=== PATIENT | female | born 1990 | race Caucasian/White ===

== ENCOUNTER 2018-01-15 14:08 | Emergency (ER) | payer SELFPAY, MEDICAID | END 2018-01-15 15:14 | disposition left against medical advice (07) | LOC: M ED 14:08 | DX: O20.9 Hemorrhage in early pregnancy, unspecified (principal); Z53.21 Procedure and treatment not carried out due to patient leaving prior to being seen by health care provider; Z3A.10 10 weeks gestation of pregnancy ==

== ENCOUNTER 2018-01-15 22:21 | Emergency (ER) | payer MEDICAID, SELFPAY ==
[2018-01-15] MEDS ORDERED: PERCOCET 5MG/325MG TAB PO ×2 (23:15)
[2018-01-15 23:44] LABS: BASO % 0.2 % (0.0-1.0); EOS # 0.1 10^3/uL (0.0-0.50); HEMATOCRIT 34.5 % (36.0-47.0); HEMOGLOBIN 11.9 g/dl (12.0-15.5); IMMATURE GRANULOCYTE % 0.3 % (0-3.0); LYMPH # 1.7 10^3/uL (1.5-6.5); LYMPH % 18.5 % (24.0-44.0); MEAN CORPUSCULAR HEMOGLOBIN 32.8 pg (27.0-33.0); MEAN CORPUSCULAR HGB CONC 34.5 g/dl (32.0-36.5); MONO # 0.7 10^3/uL (0.0-0.8); MONO % 7.5 % (0.0-5.0); NEUTROPHILS # 6.8 10^3/uL (1.8-7.7); NEUTROPHILS % 72.5 % (36.0-66.0); PLATELET COUNT, AUTOMATED 219 10^3/uL (150-450); RED BLOOD COUNT 3.63 10^6/uL (4.00-5.40); RED CELL DISTRIBUTION WIDTH 12.9 % (11.5-14.5); WHITE BLOOD COUNT 9.4 10^3/uL (4.0-10.0)
[2018-01-15] MEDS ORDERED: MORPHINE 2 MG/ML 1ML SYRINGE (J2270) As Ordered ×2 (23:44)
[2018-01-16] MEDS: NS 1,000 ML IV ×2 (00:04)
[2018-01-16] MEDS: MORPHINE 2 MG/ML 1ML SYRINGE (J2270) IV ×4 (00:04→01:49)
[2018-01-16 00:18] LABS: AMORPHOUS SEDIMENT RFX SMALL (NEGATIVE); KETONE, URINE AUTO RFX TRACE mg/dL (NEGATIVE); LEUKOCYTE ESTERASE UR AUTO RFX NEGATIVE (NEGATIVE); NITRITE, URINE AUTO RFX NEGATIVE (NEGATIVE); RBC, URINE AUTO RFX 2 /HPF (0-3); SPECIFIC GRAVITY UR AUTO RFX 1.019 (1.002-1.035); SQUAM EPITHELIAL CELL UR AURFX 15 /HPF (0-6); WBC, URINE AUTO RFX 4 /HPF (0-3)
[2018-01-16 00:24] LABS: HCG, SERUM QUANTITATIVE 66498 MIU/ML
[2018-01-16 01:36] LABS: CHLAMYDIA DNA AMPLIFICATION NEGATIVE (NEGATIVE); GC DNA AMPLIFICATION NEGATIVE (NEGATIVE)
[2018-01-16] MEDS: ACETAMINOPHEN TAB 650MG DOSE (2X325MG) PO ×2 (01:49)
[2018-01-16] MEDS: metroNIDAZOLE (FLAGYL) 500 MG TAB PO ×2 (02:45)
== END 2018-01-16 03:12 | disposition home or self-care (01) ==
LOC: M ED 22:21
DX: O23.591 Infection of other part of genital tract in pregnancy, first trimester (principal); O20.8 Other hemorrhage in early pregnancy; O99.611 Diseases of the digestive system complicating pregnancy, first trimester; O34.80 Maternal care for other abnormalities of pelvic organs, unspecified trimester; Z87.891 Personal history of nicotine dependence; Z3A.09 9 weeks gestation of pregnancy; Z91.89 Other specified personal risk factors, not elsewhere classified; Z88.5 Allergy status to narcotic agent; Z88.8 Allergy status to other drugs, medicaments and biological substances
CPT/HCPCS: J2270

== ENCOUNTER 2018-01-17 13:45 | Emergency (ER) | payer MEDICAID, SELFPAY ==
[2018-01-17] MEDS: METOCLOPRAMIDE INJ 10MG/2ML VIAL (J2765) IV (15:15)
[2018-01-17] MEDS: NS 1,000 ML IV (16:10)
[2018-01-17] MEDS: MAALOX 30 ML SUSP *UDC PO (16:10)
[2018-01-17] MEDS: LIDOCAINE VISCOUS 2% SOLN 15ML UDC PO (16:11)
[2018-01-17] MEDS: ONDANSETRON 4MG/2ML VIAL (J2405) IV (16:30)
[2018-01-17 16:45] LABS: ANION GAP 8 MEQ/L (8-16); BLOOD UREA NITROGEN 7 MG/DL (7-18); CALCIUM LEVEL 8.6 MG/DL (8.5-10.1); CARBON DIOXIDE LEVEL 21 MEQ/L (21-32); CHLORIDE LEVEL 107 MEQ/L (98-107); CREATININE FOR GFR 0.64 MG/DL (0.55-1.30); GLOMERULAR FILTRATION RATE > 60.0 (>60); GLUCOSE, FASTING 109 MG/DL (70-100); POTASSIUM SERUM 3.4 MEQ/L (3.5-5.1); SODIUM LEVEL 136 MEQ/L (136-145)
[2018-01-17] MEDS: MORPHINE 4 MG/ML 1ML VIAL/SYRINGE (J2270) IV (17:28)
== END 2018-01-17 18:03 | disposition home or self-care (01) ==
LOC: M ED 13:45
DX: O21.9 Vomiting of pregnancy, unspecified (principal); O23.591 Infection of other part of genital tract in pregnancy, first trimester; Z3A.09 9 weeks gestation of pregnancy; Z87.891 Personal history of nicotine dependence; Z88.8 Allergy status to other drugs, medicaments and biological substances; Z88.5 Allergy status to narcotic agent; Z79.2 Long term (current) use of antibiotics
CPT/HCPCS: J2270

== ENCOUNTER 2018-02-18 18:35 | Emergency (ER) | payer MEDICAID ==
[2018-02-18 19:44] LABS: KETONE, URINE AUTO RFX NEGATIVE (NEGATIVE); LEUKOCYTE ESTERASE UR AUTO RFX NEGATIVE (NEGATIVE); MUCUS, URINE RFX SMALL (NEGATIVE); NITRITE, URINE AUTO RFX NEGATIVE (NEGATIVE); RBC, URINE AUTO RFX 0 /HPF (0-3); SPECIFIC GRAVITY UR AUTO RFX 1.019 (1.002-1.035); SQUAM EPITHELIAL CELL UR AURFX 3 /HPF (0-6); WBC, URINE AUTO RFX 1 /HPF (0-3)
[2018-02-18 21:38] LABS: BASO % 0.2 % (0.0-1.0); EOS # 0.1 10^3/uL (0.0-0.50); EOS % 1.6 % (0.0-3.0); HEMATOCRIT 35.2 % (36.0-47.0); HEMOGLOBIN 11.9 g/dl (12.0-15.5); IMMATURE GRANULOCYTE % 0.5 % (0-3.0); LYMPH # 1.2 10^3/uL (1.5-6.5); LYMPH % 19.5 % (24.0-44.0); MEAN CORPUSCULAR HGB CONC 33.8 g/dl (32.0-36.5); MEAN CORPUSCULAR VOLUME 97.5 fl (80.0-96.0); MONO # 0.5 10^3/uL (0.0-0.8); MONO % 7.5 % (0.0-5.0); NEUTROPHILS # 4.5 10^3/uL (1.8-7.7); NEUTROPHILS % 70.7 % (36.0-66.0); PLATELET COUNT, AUTOMATED 196 10^3/uL (150-450); RED BLOOD COUNT 3.61 10^6/uL (4.00-5.40); RED CELL DISTRIBUTION WIDTH 13.4 % (11.5-14.5); WHITE BLOOD COUNT 6.4 10^3/uL (4.0-10.0)
[2018-02-18] MEDS: ONDANSETRON 4MG/2ML VIAL (J2405) IV (21:57)
[2018-02-18] MEDS: NS 1,000 ML IV (21:57)
[2018-02-18] MEDS: MORPHINE 2 MG/ML 1ML SYRINGE (J2270) IV (21:58)
== END 2018-02-18 23:01 | disposition home or self-care (01) ==
LOC: M ED 18:35
DX: O26.892 Other specified pregnancy related conditions, second trimester (principal); R11.0 Nausea; O26.852 Spotting complicating pregnancy, second trimester; N93.9 Abnormal uterine and vaginal bleeding, unspecified; Z3A.14 14 weeks gestation of pregnancy; N80.9 Endometriosis, unspecified; O99.332 Smoking (tobacco) complicating pregnancy, second trimester; F17.200 Nicotine dependence, unspecified, uncomplicated; Z98.890 Other specified postprocedural states; Z87.59 Personal history of other complications of pregnancy, childbirth and the puerperium; Z88.8 Allergy status to other drugs, medicaments and biological substances; Z88.5 Allergy status to narcotic agent
CPT/HCPCS: J2405

== ENCOUNTER → 2018-04-03 | Outpatient (CLI) | payer MEDICAID ==
[2018-04-03 17:49] LABS: BASO % 0.4 % (0.0-1.0); EOS # 0.1 10^3/uL (0.0-0.50); EOS % 1.6 % (0.0-3.0); HEMATOCRIT 35.4 % (36.0-47.0); HEMOGLOBIN 11.8 g/dl (12.0-15.5); IMMATURE GRANULOCYTE % 0.8 % (0-3.0); LYMPH # 1.2 10^3/uL (1.5-6.5); MEAN CORPUSCULAR HEMOGLOBIN 33.6 pg (27.0-33.0); MEAN CORPUSCULAR HGB CONC 33.3 g/dl (32.0-36.5); MEAN CORPUSCULAR VOLUME 100.9 fl (80.0-96.0); MONO # 0.5 10^3/uL (0.0-0.8); MONO % 7.2 % (0.0-5.0); NEUTROPHILS # 5.6 10^3/uL (1.8-7.7); PLATELET COUNT, AUTOMATED 236 10^3/uL (150-450); RED BLOOD COUNT 3.51 10^6/uL (4.00-5.40); RED CELL DISTRIBUTION WIDTH 13.9 % (11.5-14.5); WHITE BLOOD COUNT 7.5 10^3/uL (4.0-10.0)
[2018-04-03 21:56] LABS: CHLAMYDIA DNA AMPLIFICATION NEGATIVE (NEGATIVE); GC DNA AMPLIFICATION NEGATIVE (NEGATIVE)
[2018-04-05 10:24] LABS: RUBELLA IgG QUALITATIVE IMMUNE (IMMUNE)
[2018-04-05 10:41] LABS: HBsAg Prenatal NEGATIVE (NEGATIVE)
[2018-04-05 10:54] LABS: HIV 1&2 SCREEN CENTAUR NEGATIVE (NEGATIVE)
[2018-04-05 10:58] LABS: HEPATITIS C VIRUS ABY INDEX > 11.0 INDEX (<0.8)
[2018-04-10 00:06] LABS: HCV RNA NAA QUALITATIVE Positive (Negative)
== END ==
LOC: M SMT 15:04
DX: Z34.82 Encounter for supervision of other normal pregnancy, second trimester (principal); Z3A.20 20 weeks gestation of pregnancy; Z36.89 Encounter for other specified antenatal screening
CPT/HCPCS: 86762

== ENCOUNTER 2018-04-08 19:07 | Emergency (ER) | payer OTHER ==
[2018-04-08] MEDS: AUGMENTIN 875 MG TAB PO (21:54)
[2018-04-08] MEDS: NORCO 5/325MG TABLET (BULK FOR ED) PO (21:55)
[2018-04-08] MEDS: PERCOCET 5MG/325MG TAB PO (21:55)
== END 2018-04-08 22:09 | disposition home or self-care (01) ==
LOC: M ED 19:07
DX: K04.7 Periapical abscess without sinus (principal); K02.9 Dental caries, unspecified; F17.200 Nicotine dependence, unspecified, uncomplicated; Z88.8 Allergy status to other drugs, medicaments and biological substances; Z88.5 Allergy status to narcotic agent
CPT/HCPCS: 99282

== ENCOUNTER → 2018-04-11 | Outpatient (CLI) | payer OTHER, MEDICAID | LOC: M RAD 08:17 | DX: Z34.82 Encounter for supervision of other normal pregnancy, second trimester (principal); Z36.89 Encounter for other specified antenatal screening; Z3A.21 21 weeks gestation of pregnancy | CPT/HCPCS: 76816 ==

== ENCOUNTER 2018-04-21 08:49 | Emergency (ER) | payer OTHER ==
[2018-04-21] MEDS: PERCOCET 5MG/325MG TAB PO (10:03)
== END 2018-04-21 10:08 | disposition home or self-care (01) ==
LOC: M ED 08:49
DX: S02.5XXA Fracture of tooth (traumatic), initial encounter for closed fracture (principal); X58.XXXA Exposure to other specified factors, initial encounter; Y92.89 Other specified places as the place of occurrence of the external cause; K02.9 Dental caries, unspecified; F31.9 Bipolar disorder, unspecified; F41.9 Anxiety disorder, unspecified; F17.200 Nicotine dependence, unspecified, uncomplicated
CPT/HCPCS: 99282

== ENCOUNTER 2018-05-03 20:41 | Emergency (ER) | payer OTHER ==
[2018-05-03] MEDS: PERCOCET 5MG/325MG TAB PO ×2 (23:24→23:52)
[2018-05-03] MEDS: CLINDAMYCIN 150 MG CAP PO (23:53)
== END 2018-05-04 00:07 | disposition home or self-care (01) ==
LOC: M ED 05-04 00:07
DX: O99.89 Other specified diseases and conditions complicating pregnancy, childbirth and the puerperium (principal); K04.7 Periapical abscess without sinus; K02.9 Dental caries, unspecified; S02.5XXA Fracture of tooth (traumatic), initial encounter for closed fracture; X58.XXXA Exposure to other specified factors, initial encounter; Y92.89 Other specified places as the place of occurrence of the external cause; F17.200 Nicotine dependence, unspecified, uncomplicated; Z88.8 Allergy status to other drugs, medicaments and biological substances; Z88.5 Allergy status to narcotic agent; Z79.2 Long term (current) use of antibiotics; Z3A.00 Weeks of gestation of pregnancy not specified
CPT/HCPCS: 99283

== ENCOUNTER 2018-05-14 18:42 | Emergency (ER) | payer OTHER ==
[2018-05-14] MEDS: PERCOCET 5MG/325MG TAB PO (18:31)
== END 2018-05-14 19:02 | disposition home or self-care (01) ==
LOC: M ED 18:42
DX: K02.9 Dental caries, unspecified (principal); R51 Headache; F17.200 Nicotine dependence, unspecified, uncomplicated
CPT/HCPCS: 99283

== ENCOUNTER 2018-05-21 10:19 | Emergency (ER) | payer OTHER ==
[2018-05-21] MEDS ORDERED: NORCO, ANEXSIA 5/325MG TABLET (HYDROcodone/ACETAMINOPHEN) PO (11:00)
== END 2018-05-21 10:58 | disposition home or self-care (01) ==
LOC: M ED 10:19
DX: O99.89 Other specified diseases and conditions complicating pregnancy, childbirth and the puerperium (principal); S02.5XXA Fracture of tooth (traumatic), initial encounter for closed fracture; K08.89 Other specified disorders of teeth and supporting structures; X58.XXXA Exposure to other specified factors, initial encounter; Y92.9 Unspecified place or not applicable; Y93.9 Activity, unspecified; Y99.9 Unspecified external cause status; O99.332 Smoking (tobacco) complicating pregnancy, second trimester; Z3A.24 24 weeks gestation of pregnancy; Z91.89 Other specified personal risk factors, not elsewhere classified; Z88.5 Allergy status to narcotic agent; Z88.8 Allergy status to other drugs, medicaments and biological substances
CPT/HCPCS: 99283

== ENCOUNTER 2018-05-29 14:23 | Outpatient (CLI) | payer OTHER | END 2018-05-29 15:35 | LOC: M LDO 14:23 | DX: O26.893 Other specified pregnancy related conditions, third trimester (principal); Z3A.29 29 weeks gestation of pregnancy; N89.8 Other specified noninflammatory disorders of vagina; O98.413 Viral hepatitis complicating pregnancy, third trimester; O99.343 Other mental disorders complicating pregnancy, third trimester; F41.9 Anxiety disorder, unspecified; F31.9 Bipolar disorder, unspecified; O99.283 Endocrine, nutritional and metabolic diseases complicating pregnancy, third trimester; E28.2 Polycystic ovarian syndrome; N80.9 Endometriosis, unspecified; Z88.5 Allergy status to narcotic agent; Z88.8 Allergy status to other drugs, medicaments and biological substances; Z88.3 Allergy status to other anti-infective agents ==

== ENCOUNTER 2018-06-01 05:51 | Emergency (ER) | payer OTHER ==
[2018-06-01] MEDS ORDERED: PERCOCET 5MG/325MG TAB PO (06:30)
== END 2018-06-01 06:54 | disposition home or self-care (01) ==
LOC: M ED 05:51
DX: S02.5XXA Fracture of tooth (traumatic), initial encounter for closed fracture (principal); X58.XXXA Exposure to other specified factors, initial encounter; Y92.89 Other specified places as the place of occurrence of the external cause; F33.9 Major depressive disorder, recurrent, unspecified; F41.9 Anxiety disorder, unspecified; K27.9 Peptic ulcer, site unspecified, unspecified as acute or chronic, without hemorrhage or perforation; N80.9 Endometriosis, unspecified; Z88.5 Allergy status to narcotic agent; Z88.8 Allergy status to other drugs, medicaments and biological substances; F17.210 Nicotine dependence, cigarettes, uncomplicated
CPT/HCPCS: 99283

== ENCOUNTER 2018-06-05 20:42 | Emergency (ER) | payer OTHER ==
[2018-06-05] MEDS: NORCO 5/325MG TABLET (BULK FOR ED) PO (22:21)
== END 2018-06-05 22:26 | disposition home or self-care (01) ==
LOC: M ED 20:42
DX: K02.9 Dental caries, unspecified (principal); Z88.5 Allergy status to narcotic agent; Z88.8 Allergy status to other drugs, medicaments and biological substances; F17.210 Nicotine dependence, cigarettes, uncomplicated
CPT/HCPCS: 99283

== ENCOUNTER 2018-06-09 08:34 | Emergency (ER) | payer OTHER ==
[2018-06-09] MEDS: AUGMENTIN 875 MG TAB PO (09:35)
[2018-06-09] MEDS: PERCOCET 5MG/325MG TAB PO (09:36)
== END 2018-06-09 09:45 | disposition home or self-care (01) ==
LOC: M ED 08:34
DX: K02.9 Dental caries, unspecified (principal); K04.7 Periapical abscess without sinus; F31.9 Bipolar disorder, unspecified; Z88.8 Allergy status to other drugs, medicaments and biological substances
CPT/HCPCS: 99282

== ENCOUNTER 2018-06-12 12:09 | Emergency (ER) | payer OTHER | END 2018-06-12 13:49 | disposition home or self-care (01) | LOC: M ED 12:09 | DX: K08.89 Other specified disorders of teeth and supporting structures (principal) | CPT/HCPCS: 99283 ==

== ENCOUNTER 2018-06-14 12:31 | Emergency (ER) | payer OTHER ==
[2018-06-14] MEDS: LIDOCAINE VISCOUS 2% SOLN 15ML UDC MT (14:01)
== END 2018-06-14 14:02 | disposition home or self-care (01) ==
LOC: M ED 12:31
DX: O99.619 Diseases of the digestive system complicating pregnancy, unspecified trimester (principal); S02.5XXA Fracture of tooth (traumatic), initial encounter for closed fracture; X58.XXXA Exposure to other specified factors, initial encounter; Y92.89 Other specified places as the place of occurrence of the external cause; K27.9 Peptic ulcer, site unspecified, unspecified as acute or chronic, without hemorrhage or perforation; O99.340 Other mental disorders complicating pregnancy, unspecified trimester; F31.9 Bipolar disorder, unspecified; F41.9 Anxiety disorder, unspecified; O99.89 Other specified diseases and conditions complicating pregnancy, childbirth and the puerperium; N80.9 Endometriosis, unspecified; O99.330 Smoking (tobacco) complicating pregnancy, unspecified trimester; F17.210 Nicotine dependence, cigarettes, uncomplicated; Z3A.27 27 weeks gestation of pregnancy; Z88.5 Allergy status to narcotic agent; Z88.8 Allergy status to other drugs, medicaments and biological substances; Z79.2 Long term (current) use of antibiotics
CPT/HCPCS: 99282

== ENCOUNTER 2018-06-18 18:03 | Emergency (ER) | payer OTHER ==
[2018-06-18] MEDS: NORCO 5/325MG TABLET (BULK FOR ED) PO (20:39)
== END 2018-06-18 20:46 | disposition home or self-care (01) ==
LOC: M ED 18:03
DX: K08.89 Other specified disorders of teeth and supporting structures (principal); F17.200 Nicotine dependence, unspecified, uncomplicated
CPT/HCPCS: 99283

== ENCOUNTER 2018-06-27 22:23 | Emergency (ER) | payer OTHER ==
[2018-06-28] MEDS: AUGMENTIN 875 MG TAB PO (00:53)
== END 2018-06-28 00:56 | disposition home or self-care (01) ==
LOC: M ED 22:23
DX: K08.89 Other specified disorders of teeth and supporting structures (principal); F17.200 Nicotine dependence, unspecified, uncomplicated
CPT/HCPCS: 99283

== ENCOUNTER 2018-07-06 14:34 | Emergency (ER) | payer OTHER ==
[2018-07-06] MEDS: NORCO, ANEXSIA 5/325MG TABLET (HYDROcodone/ACETAMINOPHEN) PO (15:47)
== END 2018-07-06 15:55 | disposition home or self-care (01) ==
LOC: M ED 14:34
DX: O99.89 Other specified diseases and conditions complicating pregnancy, childbirth and the puerperium (principal); S02.5XXA Fracture of tooth (traumatic), initial encounter for closed fracture; X58.XXXA Exposure to other specified factors, initial encounter; Y92.9 Unspecified place or not applicable; Y93.9 Activity, unspecified; Y99.9 Unspecified external cause status; K08.89 Other specified disorders of teeth and supporting structures; K13.79 Other lesions of oral mucosa; Z3A.29 29 weeks gestation of pregnancy; Z88.6 Allergy status to analgesic agent; Z88.5 Allergy status to narcotic agent; Z88.8 Allergy status to other drugs, medicaments and biological substances; Z91.89 Other specified personal risk factors, not elsewhere classified
CPT/HCPCS: 99282

== ENCOUNTER → 2018-07-22 | Outpatient (REF) | payer OTHER | LOC: M LAB REF 17:23 | DX: O98.413 Viral hepatitis complicating pregnancy, third trimester (principal) ==

== ENCOUNTER 2018-08-05 17:04 | Inpatient (IN) | payer OTHER ==
[2018-08-05] MEDS: miSOPROStol 50 MCG 1/2 TAB (S0191) PO ×2 (18:19→22:43)
[2018-08-05 18:31] LABS: HEMATOCRIT 34.4 % (36.0-47.0); HEMOGLOBIN 11.6 g/dl (12.0-15.5); MEAN CORPUSCULAR HEMOGLOBIN 32.8 pg (27.0-33.0); MEAN CORPUSCULAR HGB CONC 33.7 g/dl (32.0-36.5); MEAN CORPUSCULAR VOLUME 97.2 fl (80.0-96.0); PLATELET COUNT, AUTOMATED 175 10^3/uL (150-450); RED BLOOD COUNT 3.54 10^6/uL (4.00-5.40); RED CELL DISTRIBUTION WIDTH 13.6 % (11.5-14.5); WHITE BLOOD COUNT 8.6 10^3/uL (4.0-10.0)
[2018-08-05 18:46] LABS: AMPHETAMINES URINE REFLEX NEGATIVE (NEGATIVE); BARBITURATES URINE REFLEX NEGATIVE (NEGATIVE); BENZODIAZEPINES URINE REFLEX NEGATIVE (NEGATIVE); CANNABINOIDS URINE REFLEX NEGATIVE (NEGATIVE); COCAINE METABOLITE URINE REFLE NEGATIVE (NEGATIVE); METHADONE URINE REFLEX NEGATIVE (NEGATIVE); OPIATES URINE REFLEX NEGATIVE (NEGATIVE); PHENCYCLIDINE URINE REFLEX NEGATIVE (NEGATIVE)
[2018-08-05] MEDS: NICOTINE 21MG/24HR 1 EA TRANSDERMAL TD (21:16)
[2018-08-06] MEDS: miSOPROStol 50 MCG 1/2 TAB (S0191) PO ×5 (02:15→18:15)
[2018-08-06] MEDS ORDERED: OXYTOCIN 30 UNITS IN 0.9% NaCl 500ML IV BAG (J2590) As Ordered (03:11)
[2018-08-06] MEDS: LR 1,000 ML IV ×3 (03:23→19:05)
[2018-08-06] MEDS: OXYTOCIN DRIP 30 UNITS in APPROPRIATE DILUENT 1 EA IV (03:24)
[2018-08-06] MEDS ORDERED: FENTANYL 2MCG/ML ROPIVACAINE 0.2% IN 0.9% NACL 100ML IVBAG As Ordered (03:58)
[2018-08-06] MEDS ORDERED: ONDANSETRON 4MG/2ML VIAL (J2405) IV (05:14)
[2018-08-06] MEDS ORDERED: ePHEDrine SULFATE 25 MG/5 ML(5MG/ML) SYRINGE IV (05:14)
[2018-08-06] MEDS ORDERED: REFRIGERATOR IV KEYS XX (05:14)
[2018-08-06] MEDS ORDERED: diphenhydrAMINE INJ 50MG/ML VIAL (J1200) IV (05:14)
[2018-08-06] MEDS ORDERED: LACTATED RINGER'S 1000 ML IV (05:14)
[2018-08-06] MEDS: FENTANYL/ROPIVACAINE/NACL BAG 100 ML EPIDURAL ×3 (05:14→23:42)
[2018-08-06] MEDS ORDERED: NALOXONE INJ 0.4 MG/1 ML VIAL (J2310) IV (05:14)
[2018-08-06] MEDS ORDERED: EPIDURAL/PCA KEYS XX (05:14)
[2018-08-06] MEDS ORDERED: EPIDURAL COMMENT XX (05:14)
[2018-08-06] MEDS: SERTRALINE 100 MG TAB PO (08:49)
[2018-08-06] MEDS: NICOTINE 21MG/24HR 1 EA TRANSDERMAL TD (21:10)
[2018-08-07 05:45] LABS: CORD GAS HCO3 A 20.1 MEQ/L; CORD GAS O2 SAT A 70.3 %; CORD GAS PCO2 A 41.4 mmHg; CORD GAS PH A 7.303 UNITS; CORD GAS PO2 A 31.3 mmHg; CORD GAS TCO2 A 21.3 MEQ/L
[2018-08-07 05:46] LABS: CORD GAS ABE V -4.6; CORD GAS HCO3 V 20.7 MEQ/L; CORD GAS O2 SAT V 77.7 %; CORD GAS PCO2 V 38.8 mmHg; CORD GAS PH V 7.344 UNITS; CORD GAS SBC V 20.3 MEQ/L; CORD GAS TCO2 V 21.8 MEQ/L
[2018-08-07] MEDS: OXYTOCIN DRIP 30 UNITS in APPROPRIATE DILUENT 1 EA IV (06:15)
[2018-08-07] MEDS ORDERED: DOCUSATE SODIUM 100 MG CAP PO (06:15)
[2018-08-07] MEDS ORDERED: DIBUCAINE 1% OINTMENT 30GM TOP (06:15)
[2018-08-07] MEDS: miSOPROStol 200 MCG TAB (S0191) PR (06:15)
[2018-08-07] MEDS ORDERED: MEASLES,MUMPS,RUBELLA VACCINE INJ (MMR-II) (90707) SC (06:15)
[2018-08-07] MEDS ORDERED: IBUPROFEN 800 MG TAB PO (06:15)
[2018-08-07] MEDS ORDERED: ANUSOL HC CREAM 30GM TOP (06:15)
[2018-08-07] MEDS ORDERED: RHOGAM 300 MCG (1500 IU) INJ (J2790) IM (06:15)
[2018-08-07] MEDS ORDERED: METHYLERGONOVINE MALEATE 0.2 MG TAB PO (06:15)
[2018-08-07] MEDS ORDERED: MOM 30ML SUSPENSION UDC PO (06:15)
[2018-08-07] MEDS ORDERED: OXYTOCIN 30 UNITS IN 0.9% NaCl 500ML IV BAG (J2590) As Ordered (06:17)
[2018-08-07] MEDS: AMPICILLIN SOD/SULBACTAM SOD 3 GM in D5W MINI-BAG PLUS 100 ML IV ×3 (06:51→18:29)
[2018-08-07] MEDS: ACETAMINOPHEN 500 MG TAB PO ×2 (07:32→17:57)
[2018-08-07] MEDS: PERCOCET 5MG/325MG TAB PO ×2 (09:25→19:52)
[2018-08-07] MEDS: NICOTINE 21MG/24HR 1 EA TRANSDERMAL TD (21:11)
[2018-08-08] MEDS: hydrOXYzine 50 MG TAB PO (00:29)
[2018-08-08] MEDS: PERCOCET 5MG/325MG TAB PO ×4 (00:30→15:10)
[2018-08-08] MEDS: AMPICILLIN SOD/SULBACTAM SOD 3 GM in D5W MINI-BAG PLUS 100 ML IV ×2 (00:31→06:01)
[2018-08-08] MEDS: SERTRALINE 100 MG TAB PO (09:10)
[2018-08-08] MEDS ORDERED: NICOTINE 21MG/24HR 1 EA TRANSDERMAL TD (21:00)
== END 2018-08-08 15:20 | disposition home or self-care (01) | DRG 541 ==
LOC: M LDI 17:04 → M OBS 08-07 08:49
PROVIDERS: Advanced Practice Midwife
PROC: 3E0P7GC Introduction of Other Therapeutic Substance into Female Reproductive, Via Natural or Artificial Opening (ICD-10-PCS; 2018-08-05)
PROC: 10E0XZZ Delivery of Products of Conception, External Approach (ICD-10-PCS; principal; 2018-08-07)
PROC: 10D17Z9 Manual Extraction of Products of Conception, Retained, Via Natural or Artificial Opening (ICD-10-PCS; 2018-08-07)
DX: O99.344 Other mental disorders complicating childbirth (principal); F32.9 Major depressive disorder, single episode, unspecified; F41.9 Anxiety disorder, unspecified; O99.334 Smoking (tobacco) complicating childbirth; F17.210 Nicotine dependence, cigarettes, uncomplicated; O73.0 Retained placenta without hemorrhage; Z37.0 Single live birth; Z3A.39 39 weeks gestation of pregnancy

== ENCOUNTER 2018-09-03 00:48 | Emergency (ER) | payer OTHER ==
[~2018-09-03] VITALS: Ht 162.6 cm; Wt 77.3 kg
[2018-09-03 00:48] VITALS: BP 125/66
[~2018-09-03 00:48] MED LIST: ACET-683 PO; ACET30TAB PO; AMOX500C PO; AUGM875T28 PO; BENA25CA2 PO; CLEO300C2 PO; COLA100C5 PO; FLAG500T PO; FLINCHW9 PO; IBUP80TA PO; MAGICMW SSP; MAPA500T2 PO; NICO21DI6 TOP; NORCOTAB PO; OXYC1TAB23 PO; PERC5TAB12 PO; PERCOCET PO; SERT50TA PO; STUACAP PO; TYLE167L PO; VITAPOW38 PO; ZOFR4TAB14 PO; [UNRECOGNIZED DRUG - CODE]
[2018-09-03] MEDS ORDERED: CETACAINE SPRAY 5GM TOP ONE (02:30)
[2018-09-03] MEDS ORDERED: BUPIVACAINE HCL 0.5% 30 ML VIAL SC ONE (02:30)
== END 2018-09-03 02:32 | disposition left against medical advice (07) ==
LOC: M ED 00:48
DX: K08.89 Other specified disorders of teeth and supporting structures (principal); G89.29 Other chronic pain; F31.9 Bipolar disorder, unspecified; F17.200 Nicotine dependence, unspecified, uncomplicated; Z79.899 Other long term (current) drug therapy; Z88.8 Allergy status to other drugs, medicaments and biological substances; Z88.5 Allergy status to narcotic agent; Z88.1 Allergy status to other antibiotic agents

== ENCOUNTER 2018-09-06 17:22 | Emergency (ER) | payer OTHER ==
[~2018-09-06] VITALS: Ht 162.6 cm; Wt 72.7 kg
[2018-09-06 17:22] VITALS: BP 143/92
[2018-09-06] MEDS ORDERED: ACETAMINOPHEN 325 MG TAB PO ONE (18:00)
--- NOTE | 2018-09-06 18:21 | REP ---
CT study of the cervical spine without contrast: History: Push down stairs. Technique: Helical scanning is acquired and overlapping 2 mm high resolution axial images were generated and reviewed at bone and soft tissue window settings. Coronal and sagittal multiplanar re-formations images are generated. CT findings: There is no evidence of cervical spine element fracture. No skull base fracture is seen. Cervical vertebral body heights are preserved. Alignment is normal. Facet joints are normally aligned bilaterally at each cervical level on multiplanar re-formations images. There is no evidence of intraspinal or paraspinal hematoma. No extra vertebral abnormality is seen. Incidental note is made of a right-sided cervical rib at the C7 vertebral body level. Impression: Incidental right cervical rib noted at C7. Otherwise negative CT study of the cervical spine without contrast. No fracture seen. Electronically Signed by Pool Shea MD 09/06/2018 06:13 P
--- NOTE | 2018-09-06 21:13 | REP ---
Left elbow series: Four views. History: Injury in a fall down stairs. Findings: Four views of the left elbow are presented. The lateral view is less than optimally positioned. No fracture or subluxation is seen. Impression: No fracture noted. Electronically Signed by Pool Shea MD 09/07/2018 08:22 A
== END 2018-09-06 18:56 | disposition home or self-care (01) ==
LOC: M ED 17:22
DX: M79.602 Pain in left arm (principal); R68.84 Jaw pain; M54.2 Cervicalgia; Z76.5 Malingerer [conscious simulation]; B19.20 Unspecified viral hepatitis C without hepatic coma; F31.9 Bipolar disorder, unspecified; F41.9 Anxiety disorder, unspecified; Z88.5 Allergy status to narcotic agent; Z88.8 Allergy status to other drugs, medicaments and biological substances

== ENCOUNTER 2018-09-15 11:01 | Emergency (ER) | payer OTHER ==
[~2018-09-15] VITALS: Ht 162.6 cm; Wt 72.7 kg
[2018-09-15 11:02] VITALS: BP 139/68
[2018-09-15] MEDS ORDERED: APAP500T10 PO (11:15)
[2018-09-15] MEDS ORDERED: AUGM875T28 PO (11:50)
[2018-09-15] MEDS ORDERED: PERC5TAB12 PO (11:50)
[2018-09-15] MEDS ORDERED: [UNRECOGNIZED DRUG - CODE] MT (11:52)
[2018-09-15] MEDS ORDERED: PERCOCET 5MG/325MG TAB PO ONE (12:00)
[2018-09-15] MEDS ORDERED: AUGMENTIN 875 MG TAB PO ONE (12:00)
[2018-09-25] MEDS ORDERED: AUGM875T28 PO (11:41)
[2018-09-25] MEDS ORDERED: CLON0.5T8 PO (11:41)
== END 2018-09-15 12:24 | disposition home or self-care (01) ==
LOC: M ED 11:01
DX: K04.7 Periapical abscess without sinus (principal); R56.9 Unspecified convulsions; E28.2 Polycystic ovarian syndrome; B19.20 Unspecified viral hepatitis C without hepatic coma; Z88.5 Allergy status to narcotic agent; Z88.8 Allergy status to other drugs, medicaments and biological substances; F17.210 Nicotine dependence, cigarettes, uncomplicated

== ENCOUNTER 2018-09-25 12:58 | Emergency (ER) | payer OTHER ==
[~2018-09-25] VITALS: Ht 162.6 cm; Wt 72.7 kg
[~2018-09-25 12:58] MED LIST changes: +APAP500T10 PO; +CLON0.5T8 PO; +[UNRECOGNIZED DRUG - CODE] MT
[2018-09-25 12:59] VITALS: BP 121/70
[2018-09-25] MEDS ORDERED: ZOFR4TAB16 PO (13:43)
[2018-09-25] MEDS ORDERED: CLEO300C2 PO (13:43)
[2018-09-25] MEDS ORDERED: LIDO1SOL7 PO (13:45)
[2018-10-03] MEDS ORDERED: NORC1TAB4 PO (14:05)
== END 2018-09-25 13:45 | disposition home or self-care (01) ==
LOC: M ED 12:58
DX: K08.89 Other specified disorders of teeth and supporting structures (principal); F17.200 Nicotine dependence, unspecified, uncomplicated; Z88.5 Allergy status to narcotic agent; Z88.8 Allergy status to other drugs, medicaments and biological substances; Z79.899 Other long term (current) drug therapy

== ENCOUNTER 2018-09-27 14:51 | Emergency (ER) | payer OTHER ==
[~2018-09-27] VITALS: Ht 162.6 cm; Wt 72.7 kg
[~2018-09-27 14:51] MED LIST changes: +LIDO1SOL7 PO; +ZOFR4TAB16 PO
[2018-09-27 14:52] VITALS: BP 121/78
[2018-09-27 15:24] LABS: BASO % 0.4 % (0.0-1.0); EOS # 0.2 10^3/uL (0.0-0.50); EOS % 2.9 % (0.0-3.0); HEMOGLOBIN 12.6 g/dl (12.0-15.5); LYMPH # 1.4 10^3/uL (1.5-6.5); LYMPH % 28.1 % (24.0-44.0); MEAN CORPUSCULAR HEMOGLOBIN 31.4 pg (27.0-33.0); MEAN CORPUSCULAR HGB CONC 33.2 g/dl (32.0-36.5); MEAN CORPUSCULAR VOLUME 94.8 fl (80.0-96.0); MONO # 0.4 10^3/uL (0.0-0.8); MONO % 8.6 % (0.0-5.0); NEUTROPHILS # 3.1 10^3/uL (1.8-7.7); NEUTROPHILS % 59.8 % (36.0-66.0); PLATELET COUNT, AUTOMATED 261 10^3/uL (150-450); RED BLOOD COUNT 4.01 10^6/uL (4.00-5.40); WHITE BLOOD COUNT 5.1 10^3/uL (4.0-10.0)
[2018-09-27 15:41] LABS: BLOOD UREA NITROGEN 15 MG/DL (7-18); CALCIUM LEVEL 8.4 MG/DL (8.5-10.1); CARBON DIOXIDE LEVEL 27 MEQ/L (21-32); CHLORIDE LEVEL 106 MEQ/L (98-107); CREATININE FOR GFR 0.93 MG/DL (0.55-1.30); GLOMERULAR FILTRATION RATE > 60.0 (>60); GLUCOSE, FASTING 90 MG/DL (70-100); POTASSIUM SERUM 3.7 MEQ/L (3.5-5.1); SODIUM LEVEL 137 MEQ/L (136-145)
[2018-09-27 15:44] LABS: HCG, SERUM QUALITATIVE NEGATIVE (NEGATIVE)
[2018-09-27] MEDS ORDERED: KETAMINE HCL 200 MG/20 ML VIAL IV ONE (16:15)
[2018-09-27 16:34] LABS: ALBUMIN 3.9 GM/DL (3.2-5.2); ALT/SGPT 88 U/L (12-78); BILIRUBIN,DIRECT 0.1 MG/DL (0.0-0.2); BILIRUBIN,TOTAL 0.3 MG/DL (0.2-1.0); TOTAL PROTEIN 7.5 GM/DL (6.4-8.2)
[2018-10-03] MEDS ORDERED: NORC1TAB4 PO (14:05)
== END 2018-09-27 16:35 | disposition left against medical advice (07) ==
LOC: M ED 14:51
DX: N93.9 Abnormal uterine and vaginal bleeding, unspecified (principal); B18.2 Chronic viral hepatitis C; K27.9 Peptic ulcer, site unspecified, unspecified as acute or chronic, without hemorrhage or perforation; F31.9 Bipolar disorder, unspecified; F90.9 Attention-deficit hyperactivity disorder, unspecified type; F41.9 Anxiety disorder, unspecified; Z87.42 Personal history of other diseases of the female genital tract; F17.210 Nicotine dependence, cigarettes, uncomplicated; Z88.5 Allergy status to narcotic agent; Z88.8 Allergy status to other drugs, medicaments and biological substances; Z79.899 Other long term (current) drug therapy; Z79.2 Long term (current) use of antibiotics

== ENCOUNTER 2018-10-13 17:36 | Emergency (ER) | payer OTHER ==
[~2018-10-13] VITALS: Ht 162.6 cm; Wt 72.7 kg
[~2018-10-13 17:36] MED LIST changes: +NORC1TAB4 PO
[2018-10-13 17:37] VITALS: BP 128/59
[2018-10-13] MEDS ORDERED: ACET-683 PO (17:57)
[2018-10-13] MEDS ORDERED: MAGICMW SSP (19:13)
[2018-10-13] MEDS ORDERED: CLEO300C2 PO (19:13)
[2018-10-13] MEDS ORDERED: CLINDAMYCIN 150 MG CAP PO ONE (19:15)
[2018-10-13] MEDS ORDERED: LIDOCAINE VISCOUS 2% SOLN 15ML UDC MT ONE (19:15)
[2018-10-13] MEDS ORDERED: ONDANSETRON 4 MG ORAL DISINTEGRATING TAB (Q0162 PER 1MG) PO ONE (19:15)
== END 2018-10-13 19:30 | disposition home or self-care (01) ==
LOC: M ED 17:36
DX: K04.7 Periapical abscess without sinus (principal); K08.89 Other specified disorders of teeth and supporting structures; Z86.19 Personal history of other infectious and parasitic diseases; R56.9 Unspecified convulsions; E28.2 Polycystic ovarian syndrome; J45.909 Unspecified asthma, uncomplicated; F41.9 Anxiety disorder, unspecified; F32.9 Major depressive disorder, single episode, unspecified; Z72.89 Other problems related to lifestyle; Z79.899 Other long term (current) drug therapy; Z88.6 Allergy status to analgesic agent; Z88.8 Allergy status to other drugs, medicaments and biological substances; Z88.5 Allergy status to narcotic agent; Z91.89 Other specified personal risk factors, not elsewhere classified

== ENCOUNTER 2018-11-03 18:27 | Emergency (ER) | payer OTHER ==
[~2018-11-03] VITALS: Ht 162.6 cm; Wt 72.7 kg
[2018-11-03 18:27] VITALS: BP 125/61
[2018-11-03] MEDS ORDERED: CLON0.5T8 PO ×2 (18:33→19:17)
[2018-11-03] MEDS ORDERED: GI COCKTAIL 50ML BTL(HYOSCYAMINE/MAALOX/LIDOCAINE VISCOUS)(1:3:1) PO ONE (19:15)
[2018-11-03] MEDS ORDERED: ONDANSETRON 4 MG ORAL DISINTEGRATING TAB (Q0162 PER 1MG) PO ONE (19:15)
[2018-11-03] MEDS ORDERED: clonazePAM 0.5 MG TAB PO ONE (19:15)
[2018-11-03] MEDS ORDERED: MAGICMW SSP (19:17)
[2018-11-03] MEDS ORDERED: ONDA4TAB6 PO (19:17)
[2018-11-09] MEDS ORDERED: PERCOCET PO (18:10)
== END 2018-11-03 19:30 | disposition home or self-care (01) ==
LOC: M ED 18:27
DX: Z76.0 Encounter for issue of repeat prescription (principal); R10.10 Upper abdominal pain, unspecified; R11.2 Nausea with vomiting, unspecified; G40.909 Epilepsy, unspecified, not intractable, without status epilepticus; F41.9 Anxiety disorder, unspecified; J45.909 Unspecified asthma, uncomplicated; B19.20 Unspecified viral hepatitis C without hepatic coma; F17.200 Nicotine dependence, unspecified, uncomplicated; Z88.8 Allergy status to other drugs, medicaments and biological substances; Z88.5 Allergy status to narcotic agent
CPT/HCPCS: 99282; Q0162

== ENCOUNTER 2018-11-07 14:14 | Emergency (ER) | payer OTHER ==
[~2018-11-07] VITALS: Ht 162.6 cm; Wt 78.6 kg
[~2018-11-07 14:14] MED LIST changes: +ONDA4TAB6 PO
[2018-11-07 14:15] VITALS: BP 108/69
[2018-11-07] MEDS ORDERED: TYLE500T78 PO (15:01)
[2018-11-09] MEDS ORDERED: PERCOCET PO (18:10)
== END 2018-11-07 15:13 | disposition home or self-care (01) ==
LOC: M ED 14:14
DX: K08.89 Other specified disorders of teeth and supporting structures (principal); F31.9 Bipolar disorder, unspecified; F17.210 Nicotine dependence, cigarettes, uncomplicated; Z91.041 Radiographic dye allergy status; Z88.8 Allergy status to other drugs, medicaments and biological substances; Z79.899 Other long term (current) drug therapy

== ENCOUNTER 2018-11-14 10:25 | Emergency (ER) | payer OTHER ==
[~2018-11-14] VITALS: Ht 162.6 cm; Wt 79.6 kg
[~2018-11-14 10:25] MED LIST changes: +TYLE500T78 PO
[2018-11-14 10:26] VITALS: BP 118/79
[2018-11-14] MEDS ORDERED: clonazePAM 0.5 MG TAB PO ONE (11:00)
[2018-11-14 11:22] LABS: BASO % 0.4 % (0.0-1.0); EOS # 0.3 10^3/uL (0.0-0.50); EOS % 5.7 % (0.0-3.0); HEMATOCRIT 38.5 % (36.0-47.0); HEMOGLOBIN 12.6 g/dl (12.0-15.5); LYMPH # 1.4 10^3/uL (1.5-6.5); LYMPH % 24.2 % (24.0-44.0); MEAN CORPUSCULAR HEMOGLOBIN 31.3 pg (27.0-33.0); MEAN CORPUSCULAR HGB CONC 32.7 g/dl (32.0-36.5); MEAN CORPUSCULAR VOLUME 95.8 fl (80.0-96.0); MONO # 0.5 10^3/uL (0.0-0.8); MONO % 8.8 % (0.0-5.0); NEUTROPHILS # 3.4 10^3/uL (1.8-7.7); NEUTROPHILS % 60.5 % (36.0-66.0); PLATELET COUNT, AUTOMATED 219 10^3/uL (150-450); RED BLOOD COUNT 4.02 10^6/uL (4.00-5.40); WHITE BLOOD COUNT 5.7 10^3/uL (4.0-10.0)
[2018-11-14 11:44] LABS: BLOOD UREA NITROGEN 15 MG/DL (7-18); CALCIUM LEVEL 8.4 MG/DL (8.5-10.1); CARBON DIOXIDE LEVEL 26 MEQ/L (21-32); CHLORIDE LEVEL 111 MEQ/L (98-107); CREATININE FOR GFR 0.76 MG/DL (0.55-1.30); GLOMERULAR FILTRATION RATE > 60.0 (>60); GLUCOSE, FASTING 88 MG/DL (70-100); SODIUM LEVEL 142 MEQ/L (136-145)
[2018-11-14] MEDS ORDERED: NORCO, ANEXSIA 5/325MG TABLET (HYDROcodone/ACETAMINOPHEN) PO ONE (12:00)
[2018-11-14] MEDS ORDERED: CLON0.5T8 PO (12:23)
--- NOTE | 2018-11-14 12:47 | REP ---
PELVIC SONOGRAPHY: HISTORY: Right ovarian cyst. Increased pain. FINDINGS: Transabdominal and transvaginal scanning are performed. Uterine dimensions are normal in 8.8 x 6.5 x 4.3 cm. Endometrial echo is 1.4 cm thick. No focal uterine lesion is seen. Nabothian cysts are noted. Right ovarian dimensions are 4.4 x 3.3 x 3.0 cm. There are hypoechoic cysts in the right ovary measuring 2.6 x 1.7 x 2.0 cm and 1.4 x 1.7 x 1.1 cm. The left ovary measures 4.5 x 2.7 x 2.6 cm. It contains a 1.8 cm follicle. There is a small quantity of fluid in the right adnexa adjacent to the ovary. Normal Doppler flow is seen to both ovaries. Resistive indices are measured at 0.46 on the right and 0.52 on the left. IMPRESSION: Two hypoechoic cysts in the right ovary consistent with hemorrhagic cyst. A small quantity of fluid is seen adjacent to these. Otherwise negative. Electronically Signed by Pool Shea MD 11/14/2018 12:53 P
== END 2018-11-14 12:29 | disposition home or self-care (01) ==
LOC: M ED 10:25
DX: N83.291 Other ovarian cyst, right side (principal); B18.2 Chronic viral hepatitis C; F31.9 Bipolar disorder, unspecified; F41.9 Anxiety disorder, unspecified; F17.210 Nicotine dependence, cigarettes, uncomplicated; Z79.899 Other long term (current) drug therapy

== ENCOUNTER 2018-11-22 10:37 | Emergency (ER) | payer OTHER ==
[~2018-11-22] VITALS: Ht 162.6 cm; Wt 72.7 kg
[~2018-11-22 10:37] MED LIST changes: +ACET-716 PO; -ACET30TAB PO; +HYDR-3715 PO; -LIDO1SOL7 PO; +LIDO1SOL8 PO; -NORC1TAB4 PO; +NORC1TAB7 PO; -NORCOTAB PO; +SERT-141 PO; -SERT50TA PO
[2018-11-22] MEDS ORDERED: CLON0.5T8 PO (12:03)
[2018-11-22 12:16] VITALS: BP 105/54
== END 2018-11-22 12:17 | disposition home or self-care (01) ==
LOC: M ED 10:37
DX: B34.9 Viral infection, unspecified (principal); Z76.0 Encounter for issue of repeat prescription; F41.9 Anxiety disorder, unspecified; F32.9 Major depressive disorder, single episode, unspecified; B18.2 Chronic viral hepatitis C; Z87.440 Personal history of urinary (tract) infections; R56.9 Unspecified convulsions; E28.2 Polycystic ovarian syndrome; Z72.0 Tobacco use; Z88.6 Allergy status to analgesic agent; Z88.8 Allergy status to other drugs, medicaments and biological substances

== ENCOUNTER 2018-11-30 10:23 | Emergency (ER) | payer MEDICAID, OTHER, SELFPAY ==
[~2018-11-30] VITALS: Ht 162.6 cm; Wt 80.9 kg
[2018-11-30] MEDS ORDERED: NS 1,000 ML IV ONE (11:00)
[2018-11-30] MEDS ORDERED: ONDANSETRON 4MG/2ML VIAL (J2405) IV ONE (11:00)
[2018-11-30] MEDS ORDERED: MORPHINE 4 MG/ML 1ML VIAL/SYRINGE (J2270) IV ONE ×2 (11:00→12:45)
[2018-11-30 11:31] LABS: BASO % 0.4 % (0.0-1.0); EOS # 0.2 10^3/uL (0.0-0.50); EOS % 5.1 % (0.0-3.0); HEMATOCRIT 39.1 % (36.0-47.0); HEMOGLOBIN 12.9 g/dl (12.0-15.5); LYMPH # 1.4 10^3/uL (1.5-6.5); LYMPH % 29.5 % (24.0-44.0); MEAN CORPUSCULAR HEMOGLOBIN 31.6 pg (27.0-33.0); MEAN CORPUSCULAR VOLUME 95.8 fl (80.0-96.0); MONO # 0.4 10^3/uL (0.0-0.8); MONO % 8.6 % (0.0-5.0); NEUTROPHILS # 2.7 10^3/uL (1.8-7.7); NEUTROPHILS % 56.2 % (36.0-66.0); PLATELET COUNT, AUTOMATED 272 10^3/uL (150-450); RED BLOOD COUNT 4.08 10^6/uL (4.00-5.40); WHITE BLOOD COUNT 4.8 10^3/uL (4.0-10.0)
[2018-11-30 12:04] LABS: BLOOD UREA NITROGEN 7 MG/DL (7-18); CHLORIDE LEVEL 110 MEQ/L (98-107); CREATININE FOR GFR 0.75 MG/DL (0.55-1.30); GLOMERULAR FILTRATION RATE > 60.0 (>60); GLUCOSE, FASTING 85 MG/DL (70-100); POTASSIUM SERUM 4.2 MEQ/L (3.5-5.1); SODIUM LEVEL 141 MEQ/L (136-145)
[2018-11-30 12:05] LABS: ALBUMIN 3.9 GM/DL (3.2-5.2); ALT/SGPT 67 U/L (12-78); BILIRUBIN,TOTAL 0.3 MG/DL (0.2-1.0); CALCIUM LEVEL 8.6 MG/DL (8.5-10.1); CARBON DIOXIDE LEVEL 25 MEQ/L (21-32); TOTAL PROTEIN 7.3 GM/DL (6.4-8.2)
--- NOTE | 2018-11-30 12:16 | REP ---
Clinical: Right lower quadrant pain. Technique: Real time donahue scale and color evaluation using curved array transducer. Findings: Ultrasound examination of the right lower quadrant demonstrates no obvious fluid collection, adenopathy or inflammatory changes by ultrasound examination. The appendix is not definitively identified. The right ovary is normal in appearance and vascularity measuring 3.1 x 2.6 x 2.2 cm; RI 0.47. Impression: Normal right ovary without torsion. Appendix not visualized. However, no sonographic evidence for appendicitis. Electronically Signed by Manolo Nash MD 11/30/2018 12:07 P
[2018-11-30 12:35] LABS: AMYLASE 47 U/L (25-115); LIPASE 258 U/L (73-393)
[2018-11-30] MEDS: READI-CAT 2 PO SCH ×2 (12:46→13:29)
[2018-11-30 13:47] VITALS: BP 112/64
[2018-11-30] MEDS ORDERED: ZOFR4TAB16 PO (14:43)
--- NOTE | 2018-11-30 14:47 | REP ---
Clinical: Right lower quadrant pain. Technique: Axial noncontrast images from the lung bases to the pubic symphysis with coronal and sagittal re-formations. Findings: Lung bases are clear. Visualized heart and pericardium normal. Liver, spleen, pancreas, gallbladder, bilateral adrenal glands and kidneys are normal for noncontrast evaluation. The enteric system is without obstruction or acute inflammatory process. Normal cecum, terminal ileum and appendix identified in the right lower quadrant. Pelvis demonstrates normal bladder and age-appropriate uterus/adnexa. No ascites. No free air. No adenopathy. Abdominal aorta without aneurysm. Musculoskeletal structures without focal osseous abnormality. Impression: Normal noncontrast CT of the abdomen and pelvis. Electronically Signed by Manolo Nash MD 11/30/2018 02:39 P
== END 2018-11-30 15:05 | disposition home or self-care (01) ==
LOC: M ED 10:23
DX: R10.31 Right lower quadrant pain (principal); R11.2 Nausea with vomiting, unspecified; Z76.5 Malingerer [conscious simulation]; R56.9 Unspecified convulsions; J45.909 Unspecified asthma, uncomplicated; E28.2 Polycystic ovarian syndrome; B18.2 Chronic viral hepatitis C; F31.9 Bipolar disorder, unspecified; F90.9 Attention-deficit hyperactivity disorder, unspecified type; F17.200 Nicotine dependence, unspecified, uncomplicated; Z88.8 Allergy status to other drugs, medicaments and biological substances; Z88.5 Allergy status to narcotic agent; Z79.899 Other long term (current) drug therapy
CPT/HCPCS: 36415; 74176; 76857; 80053; 81001; 82150; 83690; 85025; 96361; 96374; 96375; 96376; 99284; J2270; J2405

== ENCOUNTER 2018-12-19 08:38 | Emergency (ER) | payer OTHER ==
[~2018-12-19] VITALS: Ht 162.6 cm; Wt 78.3 kg
[2018-12-19 08:39] VITALS: BP 129/71
[2018-12-19] MEDS ORDERED: KETAMINE IV ONE (09:45)
[2018-12-19] MEDS ORDERED: NACL IV ONE (09:45)
[2018-12-19] MEDS ORDERED: DILUENT IV ONE (09:45)
[2018-12-19] MEDS ORDERED: ONDANSETRON 4MG/2ML VIAL (J2405) IV ONE (09:45)
[2018-12-19] MEDS ORDERED: NS 1,000 ML IV ONE (09:45)
--- NOTE | 2018-12-19 10:13 | REP ---
Right upper quadrant sonography: History: Right upper quadrant pain. Comparison study: Comparison CT study November 30, 2018. Findings: Scanning through the right upper quadrant of the abdomen demonstrates a normal sized, thin-walled gallbladder without evidence of stone or polyp. Common bile duct is normal measuring 0.5 cm in greatest diameter. No focal liver lesion is seen. Liver size is normal. No pancreatic abnormality is observed. No right renal abnormality is seen. There is no evidence of ascites. The right kidney measures 10.9 x 4.8 x 4.0 cm. Impression: Negative right upper quadrant sonography. Electronically Signed by Pool Shea MD 12/19/2018 10:05 A
[2018-12-19 11:03] LABS: BASO % 0.3 % (0.0-1.0); EOS # 0.2 10^3/uL (0.0-0.50); EOS % 3.1 % (0.0-3.0); HEMATOCRIT 40.5 % (36.0-47.0); HEMOGLOBIN 13.7 g/dl (12.0-15.5); LYMPH # 0.9 10^3/uL (1.5-6.5); MEAN CORPUSCULAR HEMOGLOBIN 32.2 pg (27.0-33.0); MEAN CORPUSCULAR HGB CONC 33.8 g/dl (32.0-36.5); MEAN CORPUSCULAR VOLUME 95.3 fl (80.0-96.0); MONO # 0.4 10^3/uL (0.0-0.8); MONO % 6.3 % (0.0-5.0); NEUTROPHILS # 5.4 10^3/uL (1.8-7.7); NEUTROPHILS % 77.2 % (36.0-66.0); PLATELET COUNT, AUTOMATED 203 10^3/uL (150-450); RED BLOOD COUNT 4.25 10^6/uL (4.00-5.40)
[2018-12-19] MEDS ORDERED: methylPREDNISolone INJ 125 MG/2 ML VIAL (J2930) IV ONE (11:30)
[2018-12-19] MEDS ORDERED: diphenhydrAMINE INJ 50MG/ML VIAL (J1200) IV ONE (11:30)
[2018-12-19 11:31] LABS: ALBUMIN 4.1 GM/DL (3.2-5.2); ALT/SGPT 95 U/L (12-78); BILIRUBIN,DIRECT 0.2 MG/DL (0.0-0.2); BILIRUBIN,TOTAL 0.7 MG/DL (0.2-1.0); BLOOD UREA NITROGEN 14 MG/DL (7-18); CALCIUM LEVEL 8.5 MG/DL (8.5-10.1); CARBON DIOXIDE LEVEL 24 MEQ/L (21-32); CHLORIDE LEVEL 109 MEQ/L (98-107); CREATININE FOR GFR 0.66 MG/DL (0.55-1.30); GLOMERULAR FILTRATION RATE > 60.0 (>60); GLUCOSE, FASTING 90 MG/DL (70-100); LIPASE 186 U/L (73-393); POTASSIUM SERUM 4.4 MEQ/L (3.5-5.1); SODIUM LEVEL 137 MEQ/L (136-145); TOTAL PROTEIN 7.4 GM/DL (6.4-8.2)
--- NOTE | 2018-12-19 12:14 | REP ---
CT ABDOMEN AND PELVIS WITHOUT IV OR ORAL CONTRAST: HISTORY: Right upper quadrant pain. COMPARISON CT STUDY: November 30, 2018 CT FINDINGS: Preliminary digital block cuber radiograph is unremarkable. Normal bowel gas pattern. The lung bases are clear. The liver and spleen are normal in size, homogeneous in texture. No gallbladder abnormality is seen. No adrenal lesion is observed. The pancreas is unremarkable. There is no evidence of intrarenal calculus. No ureteral calculus is seen. No hydronephrosis is noted. Urinary bladder is unremarkable. No uterine abnormality is seen. No significant ovarian cyst or mass. Normal appendix is noted in the right lower quadrant. Small and large bowel loops are unremarkable in the abdomen and pelvis. No evidence of free air or abnormal fluid collection. No abdominal wall defect is seen. No bony destructive lesion is seen. IMPRESSION: Negative noncontrast CT study of the abdomen and pelvis. Normal appendix seen. Electronically Signed by Pool Shea MD 12/19/2018 12:35 P
== END 2018-12-19 11:58 | disposition left against medical advice (07) ==
LOC: M ED 08:38
DX: R10.11 Right upper quadrant pain (principal); R11.2 Nausea with vomiting, unspecified; R19.7 Diarrhea, unspecified; M54.9 Dorsalgia, unspecified; S02.5XXA Fracture of tooth (traumatic), initial encounter for closed fracture; X58.XXXA Exposure to other specified factors, initial encounter; Y92.89 Other specified places as the place of occurrence of the external cause; Z76.5 Malingerer [conscious simulation]; F44.5 Conversion disorder with seizures or convulsions; K27.9 Peptic ulcer, site unspecified, unspecified as acute or chronic, without hemorrhage or perforation; F31.9 Bipolar disorder, unspecified; F90.9 Attention-deficit hyperactivity disorder, unspecified type; F41.9 Anxiety disorder, unspecified; Z86.19 Personal history of other infectious and parasitic diseases; Z87.42 Personal history of other diseases of the female genital tract; F17.210 Nicotine dependence, cigarettes, uncomplicated; Z88.5 Allergy status to narcotic agent; Z88.8 Allergy status to other drugs, medicaments and biological substances; Z79.899 Other long term (current) drug therapy
CPT/HCPCS: 74176; 76705; 80048; 80076; 81001; 81025; 83690; 85025; 96374; 99284; J2405

== ENCOUNTER 2019-01-21 18:35 | Emergency (ER) | payer OTHER ==
[~2019-01-21] VITALS: Ht 162.6 cm; Wt 72.7 kg
[2019-01-21 18:36] VITALS: BP 101/54
== END 2019-01-21 20:16 | disposition left against medical advice (07) ==
LOC: M ED 18:35
DX: Z53.29 Procedure and treatment not carried out because of patient's decision for other reasons (principal)

== ENCOUNTER 2019-02-15 17:53 | Emergency (ER) | payer OTHER ==
[~2019-02-15] VITALS: Ht 162.6 cm; Wt 75.3 kg
[2019-02-15] MEDS ORDERED: SERO50TA PO (18:29)
[2019-02-15] MEDS ORDERED: KLON1TAB PO (18:29)
[2019-02-15] MEDS ORDERED: ACETAMINOPHEN 500 MG TAB PO ONE (20:15)
[2019-02-15] MEDS ORDERED: LIDOCAINE 5% (LIDODERM) PATCH TD ONE (20:15)
[2019-02-15 20:19] VITALS: BP 102/63
[2019-02-15] MEDS ORDERED: ANEC4CRE3 TOP (20:20)
[2019-02-15] MEDS ORDERED: ACET-683 PO (20:21)
[2019-02-15] MEDS ORDERED: **NOTE PATIENT COMMENT** MISC XX SCH (21:00)
--- NOTE | 2019-02-16 08:42 | REP ---
Left wrist four views: Mineralization and joint spaces are normal. There is no fracture or dislocation. There are no calcifications or foreign bodies. Impression: Negative left wrist. Electronically Signed by Dylan Hernandez MD 02/16/2019 08:33 A
== END 2019-02-15 20:30 | disposition home or self-care (01) ==
LOC: M ED 17:53
DX: S63.92XA Sprain of unspecified part of left wrist and hand, initial encounter (principal); S60.212A Contusion of left wrist, initial encounter; W22.8XXA Striking against or struck by other objects, initial encounter; Y92.018 Other place in single-family (private) house as the place of occurrence of the external cause; Z79.899 Other long term (current) drug therapy; Z88.5 Allergy status to narcotic agent; Z88.8 Allergy status to other drugs, medicaments and biological substances

== ENCOUNTER 2019-03-23 14:40 | Emergency (ER) | payer OTHER ==
[~2019-03-23] VITALS: Ht 162.6 cm; Wt 72.7 kg
[~2019-03-23 14:40] MED LIST changes: +ANEC4CRE3 TOP; +KLON1TAB PO; +SERO50TA PO
[2019-03-23] MEDS ORDERED: clonazePAM 1 MG TAB PO ONE (15:30)
[2019-03-23] MEDS ORDERED: QUEtiapine FUMARATE 50 MG TAB PO ONE (15:30)
[2019-03-23] MEDS ORDERED: KLON0.5T PO (16:13)
[2019-03-23] MEDS ORDERED: SERO50TA PO (16:13)
[2019-03-23 16:20] VITALS: BP 56/78
== END 2019-03-23 16:21 | disposition home or self-care (01) ==
LOC: M ED 14:40
DX: Z76.0 Encounter for issue of repeat prescription (principal); F31.9 Bipolar disorder, unspecified; Z72.0 Tobacco use; Z79.899 Other long term (current) drug therapy; Z88.6 Allergy status to analgesic agent; Z91.89 Other specified personal risk factors, not elsewhere classified; Z88.5 Allergy status to narcotic agent

== ENCOUNTER 2019-03-27 16:26 | Inpatient (IN) | payer MEDICAID, OTHER ==
[~2019-03-27] VITALS: Ht 162.6 cm; Wt 73.9 kg
[~2019-03-27 16:26] MED LIST changes: +KLON0.5T PO
[2019-03-27 18:49] LABS: AMPHETAMINES LEVEL URINE NEGATIVE (NEGATIVE); BARBITURATES URINE NEGATIVE (NEGATIVE); BENZODIAZEPINES URINE NEGATIVE (NEGATIVE); CANNABINOIDS URINE POSITIVE (NEGATIVE); COCAINE METABOLITE URINE NEGATIVE (NEGATIVE); METHADONE URINE NEGATIVE (NEGATIVE); OPIATES URINE NEGATIVE (NEGATIVE); PHENCYCLIDINE URINE NEGATIVE (NEGATIVE)
[2019-03-27 18:52] LABS: ACETAMINOPHEN LEVEL < 2.0 UG/ML (10.0-30.0); ALBUMIN 3.3 GM/DL (3.2-5.2); ALT/SGPT 108 U/L (12-78); BILIRUBIN,DIRECT 0.1 MG/DL (0.0-0.2); BILIRUBIN,TOTAL 0.4 MG/DL (0.2-1.0); BLOOD UREA NITROGEN 12 MG/DL (7-18); CALCIUM LEVEL 9.1 MG/DL (8.5-10.1); CARBON DIOXIDE LEVEL 25 MEQ/L (21-32); CHLORIDE LEVEL 111 MEQ/L (98-107); CREATININE FOR GFR 0.48 MG/DL (0.55-1.30); ETHYL ALCOHOL (ETHANOL) < 0.003 % (0.000-0.010); GLOMERULAR FILTRATION RATE > 60.0 (>60); GLUCOSE, FASTING 114 MG/DL (70-100); POTASSIUM SERUM 3.9 MEQ/L (3.5-5.1); SALICYLATE LEVEL 2.1 MG/DL (5.0-30.0); SODIUM LEVEL 142 MEQ/L (136-145); THYROID STIMULATING HORMONE < 0.005 uIU/ML (0.358-3.740); TOTAL PROTEIN 6.8 GM/DL (6.4-8.2)
[2019-03-27 19:49] LABS: FREE T4 2.65 NG/DL (0.76-1.46)
[2019-03-27 20:03] LABS: HEMATOCRIT 36.7 % (36.0-47.0); HEMOGLOBIN 12.7 g/dl (12.0-15.5); MEAN CORPUSCULAR HEMOGLOBIN 30.2 pg (27.0-33.0); MEAN CORPUSCULAR HGB CONC 34.6 g/dl (32.0-36.5); MEAN CORPUSCULAR VOLUME 87.4 fl (80.0-96.0); PLATELET COUNT, AUTOMATED 242 10^3/uL (150-450)
[2019-03-27] MEDS ORDERED: clonazePAM 1 MG TAB PO ONE (20:30)
[2019-03-27 20:38] LABS: HCG, SERUM QUALITATIVE NEGATIVE (NEGATIVE)
[2019-03-27] MEDS ORDERED: MOM 30ML SUSPENSION UDC PO PRN (22:30)
[2019-03-27] MEDS ORDERED: ACETAMINOPHEN TAB 650MG DOSE (2X325MG) PO PRN (22:30)
[2019-03-27] MEDS ORDERED: MAALOX 30 ML SUSP *UDC PO PRN (22:30)
[2019-03-27] MEDS ORDERED: OLANZapine ORAL DISINTEGRATING TAB 5MG PO PRN (22:30)
[2019-03-28] MEDS: traZODone 50 MG TAB PO PRN ×2 (00:14→21:37)
[2019-03-28 00:41] VITALS: BP 106/61
[2019-03-28] MEDS ORDERED: clonazePAM 1 MG TAB PO ONE (07:00)
[2019-03-28] MEDS: NICOTINE 21MG/24HR 1 EA TRANSDERMAL TD SCH (08:18)
[2019-03-28] MEDS ORDERED: PILL CUTTER 1 EACH XX PRN (16:00)
--- NOTE | 2019-03-28 16:59 | HPEPDOC ---
[facility] Medical History & Physical Date of Admission Mar 27, 2019 Date of Service: Mar 28, 2019 History and Physical CHIEF COMPLAINT: medical evaluation for [facility] HISTORY OF PRESENT ILLNESS: Marilu is a 28 yo female who states she was admitted for anxiety and worsening bipolar isaiah. Patient states she has had weight gain, insomnia and worsening anxiety but is unable to quantify duration. Patient is focused on getting klonopin. PAST MEDICAL HISTORY: chronic hepatitis C - not treated, unknown duration Opioid dependence by history - last delivery 08/11/2018 Anxiety bipolar depression seasonal allergies PCOS endometriosis prior HPV/Chlalmydia hypothyroid as a child/teen Past surgery: abortions x 3, eye surgery, LEEP (for HPV and abnormal PAP) Family history: parents alive (mother 48 and father 51) with COPD Social history : smoke 1/2 ppd to 2 ppd depending on anxiety; no EtOH use; tried THC once and didn't like the side effects (states caused paranoia and worsening anxiety) ALLERGIES: Please see below. REVIEW OF SYSTEMS: CONSTITUTIONAL: weight gain, insomnia HEENT: neck swelling, difficulty swallowing CARDIOVASCULAR: palpitations RESPIRATORY: denies SOB or cough GASTROINTESTINAL: decreased appetite, no N, noV, no D, no C GENITOURINARY: no dysuria SKIN: no rash MUSCULOSKELETAL: fatigue, myalgias, tired NEUROLOGICAL: no parathesia PSYCHIATRIC: anxiety HOME MEDICATIONS: Please see below. PHYSICAL EXAMINATION: VITAL SIGNS: as below GENERAL APPEARANCE: well groomed, pleasant with pressured speech, fast gait and speech HEENT: no exopthalmos, ELSA/EOMI; neck supple with thyromegally and left thyroid nodule CARDIOVASCULAR: HRRR no murmur LUNGS:CTA no W/R/R ABDOMEN: no HSM, soft NT ND NABS MUSCULOSKELETAL: moves all four extremities, normal gait, no scoliosis, no CVA t enderness; right mid back tenderness/muscle spasm EXTREMITIES: no C/C/E NEUROLOGICAL: CN 3-12 intact , no gross motor or sensory deficits. swallow intact PSYCHIATRIC: affect: anxious LABORATORY DATA: See below. ASSESSMENT and PLAN: 1. Anxiety/bipolar disorder - management and diagnosis per psychiatry 2. Chronic hepatitis C - discussed with patient that LFT are mildly elevated and discussed with her obtaining a comp field case manager thru her insurance as outpatient to assist in getting treatment options covered by insurance. she will need a PCP upon discharge to refer her to GI for evaluation and treatment. Discussed with patient the risk of hepatic cancer associated with Hep C 3. Hyperthyroidism -probable autoimmune - check Thyroglobuliln, THryoid peroxidase. Total T3 (prior to starting tapazole) -Consider further outpatient evaluation for pituatry or hypothalmic disease if not already done -Other probable etiologies include post hyperthryoid, Raj thryoiditis vs subacute thryoiditis -Will start propranolol 10mg BID and increase as needed based on HR and BP tolerance of medication -Will start tapazole low dose in AM. Repeat Total T 3, and Free T4 in 1 week to monitor medication effectiveness -Will need repeat TSH in 4-6 weeks. Handout given to and reviewed with patient regarding hyperthyroidism, etiology, symptoms and treatment. Discussed with patient the importance of follow up and medication compliance. Reviewed medication side effect profile with patient. Will continue to follow peripherally. Thank you for allowing the hospitalists to care for the medical needs of this patient. Vital Signs Vital Signs Date Time Temp Pulse Resp B/P (MAP) Pulse Ox O2 Delivery O2 Flow Rate FiO2 03/28/19 00:41 97.7 74 18 106/61 (76) 100 03/27/19 23:15 Room Air Laboratory Data Labs 24H Laboratory Tests 2 03/27/19 16:46: Nucleated Red Blood Cells % (auto) 0.0, Anion Gap 6L, Glomerular Filtration Rate > 60.0, Calcium Level 9.1, Aspartate Amino Transf (AST/SGOT) 62H, Alanine Aminotransferase (ALT/SGPT) 108H, Alkaline Phosphatase 67, Total Bilirubin 0.4, Direct Bilirubin 0.1, Total Protein 6.8, Albumin 3.3, Albumin/Globulin Ratio 0.94L, Thyroid Stimulating Hormone (TSH) < 0.005L, Free Thyroxine 2.65H, Human Chorionic Gonadotropin, Qual NEGATIVE, Salicylates Level 2.1L, Urine Amphetamines Screen NEGATIVE, Urine Benzodiazepines Screen NEGATIVE, Urine Opiates Screen NEGATIVE, Urine Methadone Screen NEGATIVE, Acetaminophen Level < 2.0L, Urine Barbiturates Screen NEGATIVE, Urine Phencyclidine Screen NEGATIVE, Urine Cocaine Metabolite Screen NEGATIVE, Urine Cannabinoids Screen POSITIVEH, Ethyl Alcohol Level < 0.003 CBC/BMP Laboratory Tests 03/27/19 16:46 Red Blood Count 4.20, Mean Corpuscular Volume 87.4, Mean Corpuscular Hemoglobin 30.2, Mean Corpuscular Hemoglobin Concent 34.6, Red Cell Distribution Width 12.4 Home Medications Scheduled Quetiapine Fumarate (Seroquel) 50 Mg Tablet, 1 TAB PO QPM Scheduled PRN Clonazepam (Klonopin) 0.5 Mg Tablet, 1 TAB PO BIDP PRN for anxiety Allergies Coded Allergies: ibuprofen (Verified Allergy, Mild, HIVES, 11/22/18) iodine (Verified Allergy, Mild, HIVES, 11/22/18) ketorolac (Verified Allergy, Mild, HIVES, 11/22/18) tramadol (Verified Allergy, Mild, HIVES, 11/22/18) A-FIB/CHADSVASC A-FIB History Current/History of A-Fib/PAF?: No JOSE CRISOSTOMO DO Mar 28, 2019 16:58
[2019-03-28 17:26] LABS: THYROID PEROXIDASE ANTIBODY 147.8 U/ML (<60.0)
[2019-03-28 17:27] LABS: THYROGLOBULIN ANTIBODY 35.9 U/ML (<60.0)
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
[2019-03-28 18:00] VITALS: BP 130/61
[2019-03-28] MEDS ORDERED: PROPRANOLOL 10 MG TAB PO PRN (18:00)
[2019-03-28] MEDS: clonazePAM 1 MG TAB PO PRN (18:23)
[2019-03-28] MEDS: PROPRANOLOL 10 MG TAB PO SCH (20:31)
[2019-03-28] MEDS ORDERED: clonazePAM 1 MG TAB PO SCH (21:00)
[2019-03-28] MEDS ORDERED: clonazePAM 1 MG TAB PO PRN (21:00)
--- NOTE | 2019-03-28 22:01 | ECGEPIP ---
[facility] - ED Test Date: 2019-03-27 Pat Name: AUSTIN VALENCIA Department: Room: [place] [address] Gender: Female Supervisor Tan Room: CATINA : 1990 Requested By: Anthony Wright Order Number: [id number] Reading MD: Anthony Guzman Measurements Intervals [place] Rate: 78 P: 5 HI: 157 QRS: 81 QRSD: 84 T: 60 QT: 401 QTc: 459 Interpretive Statements SINUS RHYTHM BENIGN EARLY REPOLARIZATION NSTTW ABNORMALITIES NO PRIORS FOR COMPARISON Electronically Signed on 03-28-2019 22:01:33 EDT by Anthony Guzman
[2019-03-29 06:53] VITALS: BP 99/50
[2019-03-29] MEDS: NICOTINE 21MG/24HR 1 EA TRANSDERMAL TD SCH (08:09)
[2019-03-29] MEDS: clonazePAM 1 MG TAB PO PRN ×2 (08:10→13:14)
[2019-03-29] MEDS: PROPRANOLOL 10 MG TAB PO SCH ×3 (08:10→20:12)
--- NOTE | 2019-03-29 09:52 | MHIPNPDOC ---
[facility] Progress Note Progress Note DATE OF SERVICE: 03/29/19 HISTORY: Per Dr. 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 She does seem preoccupied with clonazepam. She reports a history of borderline personality disorder. However is unclear as she is hard to redirect as to whether these are traits. However, it would be judicious in order to gain, a better diagnostic understand and have the medical issue result first before continuing further symptomatic treatment" VITAL SIGNS: See below. NEW TEST RESULTS: see below CURRENT MEDICATIONS: See below. MENTAL STATUS EXAMINATION: General: Well dressed with good hygiene Speech: Spontaneous and fluid Thought processes: Linear and logical MSK: Smooth and coordinated gait, no signs of tremors or involuntary orofacial movements Thought content: Future orientated Abstract reasoning, and computation: Intact Description of associations: Intact Description of abnormal or psychotic thoughts: Denies any suicidal or homicidal ideation. Denies any auditory or visual hallucinations. Does not appear to be responding to internal stimuli. Does not appear to be endorsing any bizarre or paranoid ideation. Judgment: fair Insight: fair Orientation: Alert and orientated 3 Cognition: Grossly normal Recent and remote memory: Intact Attention span and concentration: Intact Fund of knowledge: Adequate Mood: "alright" Affect: Euthymic with a full range DIAGNOSES: unspecified bipolar disorder R/O mood d/o due to [facility] (general medical condition - hyperthyroidism) cannabis use disorder tobacco use disorder ASSESSMENT:Pt seen and states that her mood is better but is worried about taking inderal as her bp was 110/60 this am before she took it. Denies dizziness at this time but agreeable to changing to 10mg tid as it is aiding her anxiety. States she's being social on the milieu which is beneficial. States she slept well last night. Feels she is tolerating her medications and they're beneficial. She is attending groups and finding them helpful. She denies SI/HI, hallucinations, delusions. Pt feels safe here. MANAGEMENT PLAN: continue plan medications: inderal 10mg bid inderal 10mg q6hr prn anxiety TIME SPENT: 30 minutes. Vital Signs Vital Signs Date Time Temp Pulse Resp B/P (MAP) Pulse Ox O2 Delivery O2 Flow Rate FiO2 03/29/19 08:10 92 110/60 03/29/19 06:53 97.6 12 03/28/19 00:41 100 03/27/19 23:15 Room Air Current Medications Current Medications Medications (Trade) Dose Ordered Sig/Jasson Route PRN Reason Start Time Stop Time Status Last Admin Dose Admin Acetaminophen (Tylenol Tab) 650 mg Q6HP PRN PO HEADACHE or DISCOMFORT 03/27/19 22:30 Al Hydrox/Mg Hydrox/Simethicone (Mylanta) 30 ml Q4HP PRN PO HEARTBURN/INDIGESTION 03/27/19 22:30 Clonazepam (KlonoPIN) 1 mg BID PO 03/28/19 21:00 03/28/19 21:00 DC Clonazepam (KlonoPIN) 1 mg BIDP PRN PO anxiety 03/28/19 18:30 03/29/19 08:10 Clonazepam (KlonoPIN) 1 mg BIDP PRN PO anxiety 03/28/19 21:00 03/28/19 21:00 DC Magnesium Hydroxide (Milk Of Magnesia) 30 ml DAILYPRN PRN PO CONSTIPATION 03/27/19 22:30 Methimazole (Tapazole) 2.5 mg DAILY PO 03/29/19 09:00 03/29/19 08:10 Nicotine (Nicoderm Cq 21mg) 1 patch DAILY TD 03/28/19 09:00 03/29/19 08:09 Olanzapine (ZyPREXA ZYDIS) 5 mg Q6HP PRN PO ANXIETY/AGITATION 03/27/19 22:30 Propranolol HCl (Inderal) 10 mg BID PO 03/28/19 21:00 03/29/19 08:10 Propranolol HCl (Inderal) 10 mg Q6HP PRN PO anxiety bp 03/28/19 18:00 Trazodone HCl (Desyrel) 50 mg QHSP PRN PO INSOMNIA 03/27/19 22:30 03/28/19 21:37 Allergies Coded Allergies: ibuprofen (Verified Allergy, Mild, HIVES, 11/22/18) iodine (Verified Allergy, Mild, HIVES, 11/22/18) ketorolac (Verified Allergy, Mild, HIVES, 11/22/18) tramadol (Verified Allergy, Mild, HIVES, 11/22/18) BRIAN CENTENO DO Mar 29, 2019 9:52 am
[2019-03-29 18:21] VITALS: BP 104/58
[2019-03-29] MEDS ORDERED: LORazepam 2 MG TAB PO ONE (21:30)
[2019-03-29] MEDS: traZODone 50 MG TAB PO PRN (23:23)
[2019-03-30 06:54] VITALS: BP 113/66
[2019-03-30] MEDS: NICOTINE 21MG/24HR 1 EA TRANSDERMAL TD SCH (08:06)
[2019-03-30] MEDS: PROPRANOLOL 10 MG TAB PO SCH ×3 (08:07→20:13)
[2019-03-30] MEDS: clonazePAM 1 MG TAB PO PRN (08:07)
--- NOTE | 2019-03-30 10:38 | MHIPNPDOC ---
[facility] Progress Note Progress Note DATE OF SERVICE: 03/30/19 HISTORY: Per Dr. 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 She does seem preoccupied with clonazepam. She reports a history of borderline personality disorder. However is unclear as she is hard to redirect as to whether these are traits. However, it would be judicious in order to gain, a better diagnostic understand and have the medical issue result first before continuing further symptomatic treatment" VITAL SIGNS: See below. NEW TEST RESULTS: see below CURRENT MEDICATIONS: See below. MENTAL STATUS EXAMINATION: General: Well dressed with good hygiene Speech: Spontaneous and fluid, slightly fast Thought processes: Linear and logical MSK: Smooth and coordinated gait, no signs of tremors or involuntary orofacial movements Thought content: Future orientated Abstract reasoning, and computation: Intact Description of associations: Intact Description of abnormal or psychotic thoughts: Denies any suicidal or homicidal ideation. Denies any auditory or visual hallucinations. Does not appear to be responding to internal stimuli. Does not appear to be endorsing any bizarre or paranoid ideation. Judgment: fair Insight: fair Orientation: Alert and orientated 3 Cognition: Grossly normal Recent and remote memory: Intact Attention span and concentration: Intact Fund of knowledge: Adequate Mood: "better" Affect: Euthymic with a full range DIAGNOSES: unspecified bipolar disorder R/O mood d/o due to [facility] (general medical condition - hyperthyroidism) cannabis use disorder tobacco use disorder ASSESSMENT:Pt seen and at first asleep and wasn't going to wake her as she's been having difficulty sleeping secondary to hyperthyroidism but awoke easily and states she feels better as she's able to sleep finally and feels less fast. She is pleasant and cooperative. One time order of Ativan last night beneficial to allow pt to sleep and asking to take it again as one time order and told would not recommend Rx home as has klonopin already that is safer and do not wa nt to risk her becoming addicted to benzos which she understands. Concerned she has Bipolar D/O and advised pt that symptoms most like thyroid related and should improve once she's euthyroid. Tolerating inderal tid much better, no side effects/dizziness. States she's being social on the milieu which is beneficial. States she slept well last night. Feels she is tolerating her medications and they're beneficial. She is attending groups and finding them helpful. She denies SI/HI, hallucinations, delusions. Pt feels safe here. MANAGEMENT PLAN: continue plan medications: inderal 10mg tid Klonopin 1mg bid TIME SPENT: 30 minutes. Vital Signs Vital Signs Date Time Temp Pulse Resp B/P (MAP) Pulse Ox O2 Delivery O2 Flow Rate FiO2 03/30/19 08:07 91 116/54 03/30/19 06:54 97.2 14 03/28/19 00:41 100 03/27/19 23:15 Room Air Current Medications Current Medications Medications (Trade) Dose Ordered Sig/Jasson Route PRN Reason Start Time Stop Time Status Last Admin Dose Admin Acetaminophen (Tylenol Tab) 650 mg Q6HP PRN PO HEADACHE or DISCOMFORT 03/27/19 22:30 Al Hydrox/Mg Hydrox/Simethicone (Mylanta) 30 ml Q4HP PRN PO HEARTBURN/INDIGESTION 03/27/19 22:30 Clonazepam (KlonoPIN) 1 mg BID PO 03/28/19 21:00 03/28/19 21:00 DC Clonazepam (KlonoPIN) 1 mg BIDP PRN PO anxiety 03/28/19 18:30 03/30/19 08:07 Clonazepam (KlonoPIN) 1 mg BIDP PRN PO anxiety 03/28/19 21:00 03/28/19 21:00 DC Magnesium Hydroxide (Milk Of Magnesia) 30 ml DAILYPRN PRN PO CONSTIPATION 03/27/19 22:30 Methimazole (Tapazole) 2.5 mg DAILY PO 03/29/19 09:00 03/30/19 08:07 Nicotine (Nicoderm Cq 21mg) 1 patch DAILY TD 03/28/19 09:00 03/30/19 08:06 Olanzapine (ZyPREXA ZYDIS) 5 mg Q6HP PRN PO ANXIETY/AGITATION 03/27/19 22:30 Propranolol HCl (Inderal) 10 mg BID PO 03/28/19 21:00 03/29/19 09:54 DC 03/29/19 08:10 Propranolol HCl (Inderal) 10 mg Q6HP PRN PO anxiety bp 03/28/19 18:00 03/29/19 09:54 DC Propranolol HCl (Inderal) 10 mg TID PO 03/29/19 16:00 03/30/19 08:07 Trazodone HCl (Desyrel) 50 mg QHSP PRN PO INSOMNIA 03/27/19 22:30 03/29/19 23:23 Allergies Coded Allergies: ibuprofen (Verified Allergy, Mild, HIVES, 11/22/18) iodine (Verified Allergy, Mild, HIVES, 11/22/18) ketorolac (Verified Allergy, Mild, HIVES, 11/22/18) tramadol (Verified Allergy, Mild, HIVES, 11/22/18) BRIAN CENTENO DO Mar 30, 2019 10:38
[2019-03-30 12:46] LABS: T UPTAKE 38 % (30-39); THYROID STIMULATING HORMONE 0.005 uIU/ML (0.358-3.740); THYROXINE (T4) > 24.0 UG/DL (4.5-12.0)
[2019-03-30] MEDS: clonazePAM 1 MG TAB PO SCH (13:01)
[2019-03-30 18:25] VITALS: BP 137/62
[2019-03-30] MEDS ORDERED: LORazepam 2 MG TAB PO ONE (21:00)
[2019-03-30] MEDS: traZODone 50 MG TAB PO PRN (21:18)
[2019-03-31] MEDS: clonazePAM 1 MG TAB PO SCH ×2 (06:08→12:00)
[2019-03-31 06:53] VITALS: BP 119/64
[2019-03-31] MEDS: NICOTINE 21MG/24HR 1 EA TRANSDERMAL TD SCH (08:30)
[2019-03-31 08:31] VITALS: BP 112/64
[2019-03-31] MEDS: PROPRANOLOL 10 MG TAB PO SCH (08:31)
[2019-03-31] MEDS ORDERED: TRAZ-252 PO (09:19)
[2019-03-31] MEDS ORDERED: CLON1TAB8 PO (09:19)
[2019-03-31] MEDS ORDERED: NICO21PAT TD (09:19)
[2019-03-31] MEDS ORDERED: METH25TAB PO (09:19)
[2019-03-31] MEDS ORDERED: PROP10TA56 PO (09:19)
--- NOTE | 2019-03-31 09:41 | IPNPDOC ---
Text Note Date of Service The patient was seen on 03/31/19. NOTE Ansley Michel is a 28-year-old female, admitted on account of anxiety and worsening bipolar isaiah. Thyroid panel showed TSH of less than 0.005 and free T4 of 2.65 She was started on propranolol 10 mg twice a day and also Tapazole. Subjective: Reports feeling more calm and less anxious and on edge. Denies palpitations, chest pain, shortness of breath. Objective GENERAL: NAD SKIN : Warm, dry intact HEENT: Atraumatic, normocephalic, PERRL, moist mucous membrane CARDIOVASCULAR: Regular rate and rhythm, S1S2, no JVD, no edema, distal pulses + palpable RESP: CTAB, no accessory muscle use noted ABDOMEN: BS+ non distended non tender MS: no joint deformities NEURO: Alert and oriented x 3, CN2-12 grossly intact PSYCH: no anxiety or agitation, appropriate mood and affect. Assessment and plan. Hyperthyroidism -(had baby 8 months ago) -Follow up with primary care physician to repeat total T3 and free T4 in one week to monitor medication effectiveness. -Continue propranolol and Tapazole at current dose VS,Fishbone, I+O VS, Fishbone, I+O Vital Signs Date Time Temp Pulse Resp B/P (MAP) Pulse Ox O2 Delivery O2 Flow Rate FiO2 03/31/19 08:31 80 112/64 03/31/19 06:53 97.9 14 03/28/19 00:41 100 03/27/19 23:15 Room Air LUIZA CASAREZP Mar 31, 2019 09:41
--- NOTE | 2019-03-31 10:50 | MHDSPDOC ---
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 Borderline personality disorder. History of Present Illness The patient is a 20-year-old woman with a reported history of to [facility] with reported manic symptoms and bizarre thoughts as well as tangential thinking process. She was admitted due to her distorted thinking process, tangential thought process, and the pressured speech. When the patient was met with, she described that she had become increasingly more elevated and anxious with tremors as well as difficulty controlling her speech, feeling very anxious and energized. Upon admission, it was noted that her thyroid hormone was quite low. 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 The patient reports notable difficulties with swallowing. She describes that she is concerned about getting her medications "adjusted." She appeared very focused on getting her clonazepam increased and she reports being on low-dose Seroquel. However, she described she does not wish to return to her previous provider as she feels the medication is not helpful and she reports that she had come in to have her medications "increased." Consultants Involved Hospitalist/PCP screening Treatment and Progress On The Unit The patient was admitted to the unit and subsequently after reviewing her laboratory studies, it was revealed that her thyroid was in overactive state. She was started on anti-thyroid medications as well as propranolol for symptomatic treatment of her anxiety and pressured speech, which appeared to produce very good results. The patient became much more stable and it became clear that the patient was able to attend to her needs on the unit during the weekend. She did not endorse any suicidal or homicidal ideation and did not present any overt concerning behavior. At times, she appeared anxious with some pressured speech but this was primarily situational. The patient was discontinued off her home Seroquel as it was unlikely it would be helpful. The propranolol served to be useful and she was increased to 10 mg TID with sufficient control of her blood pressure. She additionally was continued on her home reported dose of clonazepam 1 mg BID with reported stability and no over- sedation, suggesting that this is her home dose. The patient after being ob served requested discharge on the following Sunday and as she no longer met involuntary criteria and elected against a further voluntary admission, was discharged home. She did have notable behavior for targeting specific peers, being very "mean" as she had described in her own words. She did appear to be at baseline fairly demanding, however, she was never aggressive or demonstrate any safety problems during this. Discharge Assessment The patient is a 20-year-old woman with hyperthyroidism that has likely produced her bipolar-like state, presents and is treated with anti-thyroid agents and beta-blockers that produced a sustained improvement in the symptoms, suggesting that this is a medically induced bipolar disorder. The patient did not demonstrate any concerning ideation or behavior on the unit that would warrant involuntary admission further after she elected for discharge. 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 Mental Status Examination General: Well dressed with good hygiene Speech: Mildly pressured at times, appears to be related to anxiety around discharge Thought processes: Linear and logical MSK: Smooth and coordinated gait, no signs of tremors or involuntary orofacial movements Thought content: Future orientated Abstract reasoning, and computation: Intact Description of associations: Intact Description of abnormal or psychotic thoughts: Denies any suicidal or homicidal ideation. Denies any auditory or visual hallucinations. Does not appear to be responding to internal stimuli. Does not appear to be endorsing any bizarre or paranoid ideation. Judgment: fair Insight: fair Orientation: Alert and orientated 3 Cognition: Grossly normal Recent and remote memory: Intact Attention span and concentration: Intact Fund of knowledge: Adequate Mood: "okay" Affect: Euthymic with a full range Follow Up The social work team worked during the predischarge meeting in order to evaluate for further issues of lethality address them fully before discharge. They worked on safety planning with the patient's family members in order to ensure that the patient will have a safe and effective discharge. Time Spent The amount of time spent in the coordination of care for this patient was approximately 30 minutes. Sunday Vital Signs/I&Os Vital Signs Date Time Temp Pulse Resp B/P (MAP) Pulse Ox O2 Delivery O2 Flow Rate FiO2 03/31/19 08:31 80 112/64 03/31/19 06:53 97.9 14 03/28/19 00:41 100 03/27/19 23:15 Room Air Laboratory Data Labs 24H Laboratory Tests 2 03/30/19 10:59: Thyroid Stimulating Hormone (TSH) 0.005L, Free Thyroxine Index , Thyroxine (T4) > 24.0H, Triiodothyronine (T3) Uptake 38 Medications Scheduled Methimazole (Methimazole) 5 Mg Tablet, 2.5 MG PO DAILY for thyroid for 7 Days, #7 Nicotine (Nicotine Patch) 21 Mg Patch.td24, 1 PATCH TD DAILY for smooking for 30 Days, #30 Propranolol HCl (Propranolol HCl) 10 Mg Tablet, 10 MG PO TID for thyroid for 7 Days, #21 Scheduled PRN Clonazepam (Clonazepam) 1 Mg Tablet, 1 TAB PO BIDP PRN for anxiety for 7 Days, #14 Clonazepam (Clonazepam) 1 Mg Tablet, 1 TAB PO BIDP PRN for anxiety for 7 Days, #14 Clonazepam (Clonazepam) 1 Mg Tablet, 1 TAB PO BIDP PRN for anxiety for 7 Days, #14 Clonazepam (Clonazepam) 1 Mg Tablet, 1 TAB PO BIDP PRN for anxiety for 7 Days, #14 Trazodone HCl (Trazodone HCl) 50 Mg Tablet, 50 MG PO QHSP PRN for INSOMNIA for 7 Days, #7 Allergies Coded Allergies: ibuprofen (Verified Allergy, Mild, HIVES, 11/22/18) iodine (Verified Allergy, Mild, HIVES, 11/22/18) ketorolac (Verified Allergy, Mild, HIVES, 11/22/18) tramadol (Verified Allergy, Mild, HIVES, 11/22/18) LUH PÉREZ DO Mar 31, 2019 10:50
== END 2019-03-31 12:05 | disposition home or self-care (01) | DRG 753 ==
LOC: M ED 16:26 → M ED INP 22:28 → M PSY 23:24
PROVIDERS: ADMIT Psychiatry & Neurology Addiction Medicine; ATTEND Psychiatry & Neurology Addiction Medicine
DX: F31.89 Other bipolar disorder (principal); B18.2 Chronic viral hepatitis C; F12.10 Cannabis abuse, uncomplicated; N80.9 Endometriosis, unspecified; F60.3 Borderline personality disorder; E05.90 Thyrotoxicosis, unspecified without thyrotoxic crisis or storm; F17.200 Nicotine dependence, unspecified, uncomplicated; E28.2 Polycystic ovarian syndrome; Z63.0 Problems in relationship with spouse or partner; Z62.810 Personal history of physical and sexual abuse in childhood; Z79.899 Other long term (current) drug therapy; Z88.5 Allergy status to narcotic agent; Z88.6 Allergy status to analgesic agent; Z88.8 Allergy status to other drugs, medicaments and biological substances

== ENCOUNTER 2019-04-11 23:59 | Emergency (ER) | payer MEDICAID, OTHER ==
[~2019-04-11] VITALS: Ht 162.6 cm; Wt 72.7 kg
[~2019-04-11 23:59] MED LIST changes: +CLON0.5T2 PO; -CLON0.5T8 PO; +CLON1TAB8 PO; +METH25TAB PO; +NICO21PAT TD; +PROP10TA56 PO; +TRAZ-252 PO
[2019-04-12] MEDS ORDERED: NS 1,000 ML IV ONE (03:15)
[2019-04-12] MEDS ORDERED: ONDANSETRON 4MG/2ML VIAL (J2405) IV ONE (04:15)
[2019-04-12] MEDS ORDERED: methylPREDNISolone INJ 125 MG/2 ML VIAL (J2930) IV ONE (04:15)
[2019-04-12] MEDS ORDERED: diphenhydrAMINE INJ 50MG/ML VIAL (J1200) IV ONE (04:15)
[2019-04-12 04:16] LABS: BASO % 0.2 % (0.0-1.0); EOS # 0.4 10^3/uL (0.0-0.50); EOS % 7.1 % (0.0-3.0); HEMATOCRIT 40.3 % (36.0-47.0); HEMOGLOBIN 13.8 g/dl (12.0-15.5); LYMPH # 1.5 10^3/uL (1.5-6.5); MEAN CORPUSCULAR HEMOGLOBIN 30.3 pg (27.0-33.0); MEAN CORPUSCULAR HGB CONC 34.2 g/dl (32.0-36.5); MEAN CORPUSCULAR VOLUME 88.6 fl (80.0-96.0); MONO # 0.7 10^3/uL (0.0-0.8); MONO % 13.2 % (0.0-5.0); NEUTROPHILS # 2.4 10^3/uL (1.8-7.7); NEUTROPHILS % 49.3 % (36.0-66.0); PLATELET COUNT, AUTOMATED 187 10^3/uL (150-450); RED BLOOD COUNT 4.55 10^6/uL (4.00-5.40); WHITE BLOOD COUNT 4.9 10^3/uL (4.0-10.0)
[2019-04-12] MEDS: MORPHINE 4 MG/ML 1ML VIAL/SYRINGE (J2270) IV PRN ×2 (04:28→06:32)
[2019-04-12 04:45] LABS: ALBUMIN 3.4 GM/DL (3.2-5.2); ALT/SGPT 98 U/L (12-78); BILIRUBIN,DIRECT < 0.1 MG/DL (0.0-0.2); BILIRUBIN,TOTAL 0.3 MG/DL (0.2-1.0); LIPASE 176 U/L (73-393); TOTAL PROTEIN 6.9 GM/DL (6.4-8.2)
[2019-04-12] MEDS ORDERED: ISOVUE-370 76% 100ML VIAL (Q9967) As Ordered ONE (04:49)
--- NOTE | 2019-04-12 06:39 | REPVR ---
EXAM: CT Abdomen and Pelvis With Contrast EXAM DATE/TIME: 04/12/2019 4:57 AM CLINICAL HISTORY: 28 years old, female; Abdominal pain; Generalized; Additional info: Generalized abd pain TECHNIQUE: Imaging protocol: Axial computed tomography images of the abdomen and pelvis with intravenous contrast. Coronal and sagittal reformatted images were created and reviewed. Radiation optimization: All CT scans at this facility use at least one of these dose optimization techniques: automated exposure control; mA and/or kV adjustment per patient size (includes targeted exams where dose is matched to clinical indication); or iterative reconstruction. Contrast material: ISOVUE 370;Contrast volume: 100 ml;Contrast route: IV; COMPARISON: CT ABD PELVIS W/O CONTRAST 12/19/2018 11:29 AM FINDINGS: Liver: Mild diffuse fatty infiltration of liver. Gallbladder and bile ducts: Normal. No calcified stones. No ductal dilation. Pancreas: Normal. No ductal dilation. Spleen: Normal. No splenomegaly. Adrenals: Normal. No mass. Kidneys and ureters: Normal. No hydronephrosis. Stomach and bowel: Normal. No obstruction. No mucosal thickening. Appendix: Normal appendix. Intraperitoneal space: Normal. No free air. No significant fluid collection. Vasculature: Normal. No abdominal aortic aneurysm. Lymph nodes: Normal. No enlarged lymph nodes. Bladder: Unremarkable as visualized. Reproductive: Cyst in the left ovary measuring 2.5x 2.8x 2.6 cm. Uterus and right adnexa are unremarkable. Bones/joints: No acute fracture. No dislocation. Soft tissues: Unremarkable. IMPRESSION: Fatty liver. Cyst in the left ovary measuring 2.5x 2.8x 2.6 cm. Electronically signed by: Tenisha Tavarez On 04/12/2019 06:39:12 AM
[2019-04-12] MEDS ORDERED: OXYCODONE/APAP 5MG/325MG(BULK FOR ED) 1 TABLET PO ONE (07:00)
[2019-04-12 07:05] VITALS: BP 117/60
== END 2019-04-12 07:06 | disposition home or self-care (01) ==
LOC: M ED 23:59
DX: N83.202 Unspecified ovarian cyst, left side (principal); N80.9 Endometriosis, unspecified; Z88.5 Allergy status to narcotic agent; Z88.8 Allergy status to other drugs, medicaments and biological substances; F17.210 Nicotine dependence, cigarettes, uncomplicated
CPT/HCPCS: 74177; 80047; 80076; 81001; 83690; 84702; 85025; 96374; 96375; 96376; 99284; J1200; J2270; J2405; J2930; Q9967

== ENCOUNTER 2019-04-13 12:38 | Emergency (ER) | payer OTHER ==
[~2019-04-13] VITALS: Ht 162.6 cm; Wt 77.2 kg
[~2019-04-13 12:38] MED LIST changes: -CLON0.5T2 PO; +CLON0.5T8 PO
[2019-04-13 16:00] VITALS: BP 119/90
[2019-04-13] MEDS ORDERED: PERCOCET 5MG/325MG TAB PO ONE (16:00)
== END 2019-04-13 16:12 | disposition home or self-care (01) ==
LOC: M ED 12:38
DX: N83.202 Unspecified ovarian cyst, left side (principal); K76.0 Fatty (change of) liver, not elsewhere classified; F31.9 Bipolar disorder, unspecified; F90.9 Attention-deficit hyperactivity disorder, unspecified type; B19.20 Unspecified viral hepatitis C without hepatic coma; N80.9 Endometriosis, unspecified; Z79.899 Other long term (current) drug therapy; Z88.5 Allergy status to narcotic agent; Z88.8 Allergy status to other drugs, medicaments and biological substances; F17.210 Nicotine dependence, cigarettes, uncomplicated

== ENCOUNTER 2019-06-07 12:33 | Emergency (ER) | payer OTHER ==
[~2019-06-07] VITALS: Ht 162.6 cm; Wt 69.1 kg
[2019-06-07 12:34] VITALS: BP 131/80
[2019-06-07] MEDS ORDERED: IBUP200C25 PO (12:49)
[2019-06-07] MEDS ORDERED: NON-325T5 PO (12:51)
[2019-06-07] MEDS ORDERED: BENA25CA4 PO (12:51)
[2019-06-07] MEDS ORDERED: NORCO, ANEXSIA 5/325MG TABLET (HYDROcodone/ACETAMINOPHEN) PO ONE (13:00)
[2019-06-07] MEDS ORDERED: ACET650T15 PO (13:52)
--- NOTE | 2019-06-07 14:49 | REP ---
REASON: Pain after trauma. FINDINGS: The joint spaces are symmetric and relatively well maintained. There is no evidence of acute fracture or destructive osseous lesion. IMPRESSION: Negative. Electronically Signed by Len Martinez DO 06/07/2019 02:52 P
--- NOTE | 2019-06-07 14:50 | REP ---
REASON: Pain after trauma. COMPARISON: 02/15/2019 FINDINGS: No acute fracture or destructive osseous lesion. No change. Electronically Signed by Len Martinez DO 06/07/2019 02:52 P
== END 2019-06-07 14:15 | disposition home or self-care (01) ==
LOC: M ED 12:33
DX: S67.22XA Crushing injury of left hand, initial encounter (principal); W23.0XXA Caught, crushed, jammed, or pinched between moving objects, initial encounter; Y92.9 Unspecified place or not applicable; F31.9 Bipolar disorder, unspecified; E11.9 Type 2 diabetes mellitus without complications; F90.9 Attention-deficit hyperactivity disorder, unspecified type; F17.210 Nicotine dependence, cigarettes, uncomplicated; Z88.3 Allergy status to other anti-infective agents; Z88.5 Allergy status to narcotic agent; Z88.6 Allergy status to analgesic agent; Z88.8 Allergy status to other drugs, medicaments and biological substances; Z79.899 Other long term (current) drug therapy; Z86.19 Personal history of other infectious and parasitic diseases

== ENCOUNTER 2019-08-27 01:10 | Emergency (ER) | payer OTHER ==
[~2019-08-27 01:10] MED LIST changes: +ACET650T15 PO; +BENA25CA4 PO; +CLON0.5T2 PO; -CLON0.5T8 PO; +IBUP200C25 PO; +NON-325T5 PO
[2019-08-27 01:25] LABS: HEMATOCRIT 43.6 % (36.0-47.0); HEMOGLOBIN 14.3 g/dl (12.0-15.5); MEAN CORPUSCULAR HEMOGLOBIN 30.4 pg (27.0-33.0); MEAN CORPUSCULAR HGB CONC 32.8 g/dl (32.0-36.5); MEAN CORPUSCULAR VOLUME 92.6 fl (80.0-96.0); PLATELET COUNT, AUTOMATED 245 10^3/uL (150-450); RED BLOOD COUNT 4.71 10^6/uL (4.00-5.40); WHITE BLOOD COUNT 6.9 10^3/uL (4.0-10.0)
[2019-08-27 01:26] VITALS: BP 114/66
[2019-08-27] MEDS ORDERED: CLON0.5T2 (01:31)
[2019-08-27] MEDS ORDERED: SUBO8MIS (01:31)
[2019-08-27] MEDS ORDERED: QUET5TAB (01:31)
[2019-08-27 01:46] LABS: HCG, SERUM QUALITATIVE NEGATIVE (NEGATIVE)
[2019-08-27 01:52] LABS: AMPHETAMINES LEVEL URINE NEGATIVE (NEGATIVE); BARBITURATES URINE NEGATIVE (NEGATIVE); BENZODIAZEPINES URINE NEGATIVE (NEGATIVE); CANNABINOIDS URINE NEGATIVE (NEGATIVE); COCAINE METABOLITE URINE NEGATIVE (NEGATIVE); METHADONE URINE NEGATIVE (NEGATIVE); OPIATES URINE NEGATIVE (NEGATIVE); PHENCYCLIDINE URINE NEGATIVE (NEGATIVE)
[2019-08-27 02:09] LABS: ACETAMINOPHEN LEVEL < 2.0 UG/ML (10.0-30.0); ALT/SGPT 134 U/L (12-78); BILIRUBIN,DIRECT 0.2 MG/DL (0.0-0.2); BILIRUBIN,TOTAL 0.4 MG/DL (0.2-1.0); BLOOD UREA NITROGEN 9 MG/DL (7-18); CALCIUM LEVEL 8.8 MG/DL (8.5-10.1); CARBON DIOXIDE LEVEL 22 MEQ/L (21-32); CHLORIDE LEVEL 111 MEQ/L (98-107); CREATININE FOR GFR 0.64 MG/DL (0.55-1.30); ETHYL ALCOHOL (ETHANOL) 0.201 % (0.000-0.010); GLOMERULAR FILTRATION RATE > 60.0 (>60); GLUCOSE, FASTING 92 MG/DL (70-100); POTASSIUM SERUM 4.1 MEQ/L (3.5-5.1); SALICYLATE LEVEL 4.6 MG/DL (5.0-30.0); SODIUM LEVEL 141 MEQ/L (136-145); THYROID STIMULATING HORMONE < 0.005 uIU/ML (0.358-3.740); TOTAL PROTEIN 8.2 GM/DL (6.4-8.2)
[2019-08-27 04:02] LABS: FREE T4 1.29 NG/DL (0.76-1.46)
== END 2019-08-27 09:57 | disposition home or self-care (01) ==
LOC: M ED 01:10
DX: F43.0 Acute stress reaction (principal); F10.129 Alcohol abuse with intoxication, unspecified; F17.200 Nicotine dependence, unspecified, uncomplicated; B18.2 Chronic viral hepatitis C; Z79.899 Other long term (current) drug therapy; Z88.8 Allergy status to other drugs, medicaments and biological substances
CPT/HCPCS: 36415; 80048; 80076; 80307; 84439; 84443; 84703; 85027; 99284; G0480

== ENCOUNTER 2019-12-01 22:18 | Emergency (ER) | payer OTHER ==
[~2019-12-01 22:18] MED LIST changes: +CLON0.5T2; -LIDO1SOL8 PO; +LIDO2SOL17 PO; +QUET5TAB; +SUBO8MIS
[2019-12-01 22:37] LABS: HEMOGLOBIN 13.6 g/dl (12.0-15.5); MEAN CORPUSCULAR HEMOGLOBIN 32.6 pg (27.0-33.0); MEAN CORPUSCULAR VOLUME 95.9 fl (80.0-96.0); PLATELET COUNT, AUTOMATED 226 10^3/uL (150-450); RED BLOOD COUNT 4.17 10^6/uL (4.00-5.40)
[2019-12-01] MEDS ORDERED: ADDE30CA3 PO (22:50)
[2019-12-01] MEDS ORDERED: ADDE20CA3 PO (22:50)
[2019-12-01 23:06] LABS: AMPHETAMINES LEVEL URINE POSITIVE (NEGATIVE); BARBITURATES URINE NEGATIVE (NEGATIVE); BENZODIAZEPINES URINE NEGATIVE (NEGATIVE); CANNABINOIDS URINE POSITIVE (NEGATIVE); COCAINE METABOLITE URINE NEGATIVE (NEGATIVE); METHADONE URINE NEGATIVE (NEGATIVE); OPIATES URINE NEGATIVE (NEGATIVE); PHENCYCLIDINE URINE NEGATIVE (NEGATIVE)
[2019-12-01 23:21] VITALS: BP 93/62
[2019-12-01 23:25] LABS: ACETAMINOPHEN LEVEL < 2.0 UG/ML (10.0-30.0); ALBUMIN 3.9 GM/DL (3.2-5.2); ALT/SGPT 50 U/L (12-78); BILIRUBIN,DIRECT 0.2 MG/DL (0.0-0.2); BILIRUBIN,TOTAL 0.4 MG/DL (0.2-1.0); BLOOD UREA NITROGEN 9 MG/DL (7-18); CALCIUM LEVEL 8.7 MG/DL (8.5-10.1); CARBON DIOXIDE LEVEL 30 MEQ/L (21-32); CHLORIDE LEVEL 105 MEQ/L (98-107); ETHYL ALCOHOL (ETHANOL) < 0.003 % (0.000-0.010); GLOMERULAR FILTRATION RATE > 60.0 (>60); GLUCOSE, FASTING 76 MG/DL (70-100); HCG, SERUM QUANTITATIVE < 1.0 MIU/ML; POTASSIUM SERUM 3.4 MEQ/L (3.5-5.1); SALICYLATE LEVEL 3.5 MG/DL (5.0-30.0); SODIUM LEVEL 138 MEQ/L (136-145); THYROID STIMULATING HORMONE 0.059 uIU/ML (0.358-3.740)
[2019-12-02 00:06] LABS: FREE T4 1.52 NG/DL (0.76-1.46)
== END 2019-12-02 00:45 | disposition home or self-care (01) ==
LOC: M ED 22:18
DX: F60.3 Borderline personality disorder (principal); E07.9 Disorder of thyroid, unspecified; E28.2 Polycystic ovarian syndrome; F31.9 Bipolar disorder, unspecified; F41.9 Anxiety disorder, unspecified; B19.20 Unspecified viral hepatitis C without hepatic coma; N80.9 Endometriosis, unspecified; F11.20 Opioid dependence, uncomplicated; Z79.899 Other long term (current) drug therapy; Z88.5 Allergy status to narcotic agent; Z88.8 Allergy status to other drugs, medicaments and biological substances; F17.210 Nicotine dependence, cigarettes, uncomplicated
CPT/HCPCS: 36415; 80048; 80076; 80164; 80307; 84439; 84443; 84702; 85027; 99284; G0480

== ENCOUNTER → 2019-12-29 | Outpatient (REF) | payer OTHER ==
[~2019-12-29] MED LIST changes: +ADDE20CA3 PO; +ADDE30CA3 PO
[2019-12-29 19:11] LABS: BASO % 0.3 % (0.0-1.0); EOS # 0.3 10^3/uL (0.0-0.5); EOS % 4.4 % (0.0-3.0); HEMATOCRIT 43.2 % (36.0-47.0); HEMOGLOBIN 14.3 g/dl (12.0-15.5); LYMPH # 1.6 10^3/uL (1.5-5.0); LYMPH % 26.4 % (24.0-44.0); MEAN CORPUSCULAR HEMOGLOBIN 32.3 pg (27.0-33.0); MEAN CORPUSCULAR HGB CONC 33.1 g/dl (32.0-36.5); MEAN CORPUSCULAR VOLUME 97.5 fl (80.0-96.0); MONO # 0.5 10^3/uL (0.0-0.8); MONO % 7.7 % (0.0-5.0); NEUTROPHILS # 3.7 10^3/uL (1.5-8.5); NEUTROPHILS % 60.9 % (36.0-66.0); PLATELET COUNT, AUTOMATED 220 10^3/uL (150-450); RED BLOOD COUNT 4.43 10^6/uL (4.00-5.40); WHITE BLOOD COUNT 6.1 10^3/uL (4.0-10.0)
[2019-12-29 19:23] LABS: ALBUMIN 3.7 GM/DL (3.2-5.2); ALT/SGPT 47 U/L (12-78); BILIRUBIN,TOTAL 0.4 MG/DL (0.2-1.0); BLOOD UREA NITROGEN 14 MG/DL (7-18); CARBON DIOXIDE LEVEL 28 MEQ/L (21-32); CHLORIDE LEVEL 107 MEQ/L (98-107); CHOLESTEROL LEVEL 144 MG/DL (<200); CREATININE FOR GFR 0.76 MG/DL (0.55-1.30); FREE T4 1.19 NG/DL (0.76-1.46); GLOMERULAR FILTRATION RATE > 60.0 (>60); GLUCOSE, FASTING 86 MG/DL (70-100); HDL CHOLESTEROL 50 MG/DL (>40); LDL CHOLESTEROL 78 MG/DL (<100); NON-HDL-C 94 MG/DL; SODIUM LEVEL 140 MEQ/L (136-145); THYROID STIMULATING HORMONE 0.265 uIU/ML (0.358-3.740); TOTAL PROTEIN 7.7 GM/DL (6.4-8.2); TRIGLYCERIDES LEVEL 78 MG/DL (<150)
[2019-12-29 19:24] LABS: TOTAL T3 119.5 NG/DL (60.0-181.0)
== END ==
LOC: M LAB REF 16:20
PROVIDERS: ATTEND Nurse Practitioner Family
DX: F19.10 Other psychoactive substance abuse, uncomplicated (principal); F31.9 Bipolar disorder, unspecified; F41.9 Anxiety disorder, unspecified; F17.200 Nicotine dependence, unspecified, uncomplicated; E05.20 Thyrotoxicosis with toxic multinodular goiter without thyrotoxic crisis or storm

== ENCOUNTER 2020-01-06 11:23 | Emergency (ER) | payer OTHER ==
[~2020-01-06] VITALS: Ht 162.6 cm; Wt 54.2 kg
[2020-01-06] MEDS ORDERED: TRAZ-252 (11:31)
[2020-01-06] MEDS ORDERED: DIVA500T94 (11:31)
[2020-01-06] MEDS ORDERED: OXYC1TAB23 (11:31)
[2020-01-06 13:38] LABS: HEMATOCRIT 39.5 % (36.0-47.0); HEMOGLOBIN 13.5 g/dl (12.0-15.5); MEAN CORPUSCULAR HGB CONC 34.2 g/dl (32.0-36.5); MEAN CORPUSCULAR VOLUME 96.6 fl (80.0-96.0); PLATELET COUNT, AUTOMATED 165 10^3/uL (150-450); RED BLOOD COUNT 4.09 10^6/uL (4.00-5.40); WHITE BLOOD COUNT 5.5 10^3/uL (4.0-10.0)
[2020-01-06 13:48] LABS: INR 1.11
[2020-01-06 13:49] LABS: PARTIAL THROMBOPLASTIN TIME 33.6 SECONDS (25.0-38.4)
[2020-01-06 14:09] LABS: ACETAMINOPHEN LEVEL < 2.0 UG/ML (10.0-30.0); ALBUMIN 3.3 GM/DL (3.2-5.2); ALT/SGPT 44 U/L (12-78); BILIRUBIN,DIRECT 0.2 MG/DL (0.0-0.2); BILIRUBIN,TOTAL 0.5 MG/DL (0.2-1.0); BLOOD UREA NITROGEN 13 MG/DL (7-18); CALCIUM LEVEL 8.4 MG/DL (8.5-10.1); CARBON DIOXIDE LEVEL 28 MEQ/L (21-32); CHLORIDE LEVEL 104 MEQ/L (98-107); CK-MB VALUE MASS < 1.0 NG/ML (<3.6); CPK CREATINE PHOSPHOKINASE 39 U/L (26-192); CREATININE FOR GFR 0.65 MG/DL (0.55-1.30); GLOMERULAR FILTRATION RATE > 60.0 (>60); GLUCOSE, FASTING 81 MG/DL (70-100); MB/CK RELATIVE INDEX 2.56 (< OR =4); POTASSIUM SERUM 4.2 MEQ/L (3.5-5.1); SODIUM LEVEL 138 MEQ/L (136-145); TOTAL PROTEIN 6.9 GM/DL (6.4-8.2); TROPONIN I < 0.02 NG/ML (< 0.10)
[2020-01-06] MEDS ORDERED: clonazePAM 1 MG TAB PO ONE ×2 (14:30)
[2020-01-06 14:43] VITALS: BP 120/56
--- NOTE | 2020-01-07 08:36 | ECGEPIP ---
[facility] - ED Test Date: 2020-01-06 Pat Name: AUSTIN VALENCIA Department: Room: - Gender: Female Germ Drier: CT : 1990 Requested By: SAMUEL THOMPSON PA-C. Order Number: [id number] Reading MD: Anthony Guzman Measurements Intervals [place] Rate: 70 P: 9 MA: 128 QRS: 87 QRSD: 85 T: -33 QT: 426 QTc: 462 Interpretive Statements SINUS RHYTHM NSTTW ABNORMALITIES SIMILAR TO 03/27/19 Electronically Signed on 01-07-2020 8:35:56 EDT by Anthony Guzman
== END 2020-01-06 14:45 | disposition home or self-care (01) ==
LOC: M ED 11:23
DX: F19.10 Other psychoactive substance abuse, uncomplicated (principal); F41.9 Anxiety disorder, unspecified; F17.218 Nicotine dependence, cigarettes, with other nicotine-induced disorders; B18.2 Chronic viral hepatitis C; F32.9 Major depressive disorder, single episode, unspecified; Z88.8 Allergy status to other drugs, medicaments and biological substances; F31.9 Bipolar disorder, unspecified
CPT/HCPCS: 36415; 80048; 80076; 82550; 82553; 85027; 85610; 85730; 93005; 99284; G0480

== ENCOUNTER → 2021-02-03 | Outpatient (CLI) | payer OTHER ==
[~2021-02-03] MED LIST changes: +ACET32TAB PO; +DIVA500T94; -NON-325T5 PO; +OXYC1TAB23; +QUET50TA3; -QUET5TAB; +TRAZ-252
[2021-02-03 10:48] LABS: HEMOGLOBIN 13.5 g/dl (12.0-15.5); MEAN CORPUSCULAR HEMOGLOBIN 33.2 pg (27.0-33.0); MEAN CORPUSCULAR HGB CONC 33.8 g/dl (32.0-36.5); MEAN CORPUSCULAR VOLUME 98.3 fl (80.0-96.0); PLATELET COUNT, AUTOMATED 223 10^3/uL (150-450); RED BLOOD COUNT 4.07 10^6/uL (4.00-5.40); WHITE BLOOD COUNT 5.8 10^3/uL (4.0-10.0)
[2021-02-03 11:14] LABS: HCG, SERUM QUALITATIVE NEGATIVE (NEGATIVE)
[2021-02-03 11:25] LABS: ALBUMIN 3.7 GM/DL (3.2-5.2); ALT/SGPT 87 U/L (12-78); BILIRUBIN,TOTAL 0.5 MG/DL (0.2-1.0); BLOOD UREA NITROGEN 9 MG/DL (7-18); CALCIUM LEVEL 8.9 MG/DL (8.5-10.1); CARBON DIOXIDE LEVEL 29 MEQ/L (21-32); CHLORIDE LEVEL 105 MEQ/L (98-107); CREATININE FOR GFR 0.68 MG/DL (0.55-1.30); GLOMERULAR FILTRATION RATE > 60.0 (>60); GLUCOSE, FASTING 71 MG/DL (70-100); POTASSIUM SERUM 4.4 MEQ/L (3.5-5.1); SODIUM LEVEL 138 MEQ/L (136-145); TOTAL PROTEIN 7.6 GM/DL (6.4-8.2)
[2021-02-03 11:29] LABS: HEPATITIS B SURFACE ANTIGEN NEGATIVE (NEGATIVE)
[2021-02-03 11:58] LABS: HIV 1&2 SCREEN CENTAUR NEGATIVE (NEGATIVE)
[2021-02-03 12:05] LABS: HEPATITIS C VIRUS ABY INDEX > 11.0 INDEX (<0.8)
== END ==
LOC: M LAB 10:03
PROVIDERS: ATTEND Family Medicine
DX: F11.20 Opioid dependence, uncomplicated (principal)

== ENCOUNTER 2021-09-10 13:43 | Emergency (ER) | payer OTHER ==
[~2021-09-10] VITALS: Ht 167.6 cm; Wt 92.7 kg
[~2021-09-10 13:43] MED LIST changes: -QUET50TA3; +QUET50TA4
[2021-09-10 13:44] VITALS: BP 119/57
[2021-09-10] MEDS ORDERED: DIVA250T7 (13:52)
[2021-09-10] MEDS ORDERED: sertraline (13:52)
[2021-09-10] MEDS ORDERED: NS 1,000 ML IV ONE (14:20)
[2021-09-10] MEDS ORDERED: ONDANSETRON 4MG/2ML VIAL IV ONE (14:20)
[2021-09-10 15:18] LABS: EOS % 0.3 % (0.0-3.0); HEMOGLOBIN 14.8 g/dl (12.0-15.5); LYMPH # 0.9 10^3/uL (1.5-5.0); LYMPH % 26.3 % (24.0-44.0); MEAN CORPUSCULAR HEMOGLOBIN 32.6 pg (27.0-33.0); MEAN CORPUSCULAR HGB CONC 33.6 g/dl (32.0-36.5); MEAN CORPUSCULAR VOLUME 96.9 fl (80.0-96.0); MONO # 0.5 10^3/uL (0.0-0.8); MONO % 15.9 % (2.0-8.0); NEUTROPHILS # 1.9 10^3/uL (1.5-8.5); NEUTROPHILS % 57.2 % (36.0-66.0); PLATELET COUNT, AUTOMATED 209 10^3/uL (150-450); RED BLOOD COUNT 4.54 10^6/uL (4.00-5.40); WHITE BLOOD COUNT 3.3 10^3/uL (4.0-10.0)
[2021-09-10 15:45] LABS: ALBUMIN 3.8 GM/DL (3.2-5.2); ALT/SGPT 52 U/L (12-78); AMYLASE 34 U/L (25-115); BILIRUBIN,DIRECT 0.2 MG/DL (0.0-0.2); BILIRUBIN,TOTAL 0.2 MG/DL (0.2-1.0); BLOOD UREA NITROGEN 8 MG/DL (7-18); CALCIUM LEVEL 8.8 MG/DL (8.5-10.1); CARBON DIOXIDE LEVEL 28 MEQ/L (21-32); CHLORIDE LEVEL 103 MEQ/L (98-107); CREATININE FOR GFR 0.81 MG/DL (0.55-1.30); GLOMERULAR FILTRATION RATE > 60.0 (>60); GLUCOSE, FASTING 73 MG/DL (70-100); LIPASE 105 U/L (73-393); POTASSIUM SERUM 4.4 MEQ/L (3.5-5.1); SODIUM LEVEL 136 MEQ/L (136-145); TOTAL PROTEIN 8.2 GM/DL (6.4-8.2)
[2021-09-10] MEDS ORDERED: ACETAMINOPHEN 500 MG TAB PO ONE (16:15)
[2021-09-10] MEDS ORDERED: ACET-897 PO (16:17)
== END 2021-09-10 16:34 | disposition home or self-care (01) ==
LOC: M ED 13:43
DX: R11.2 Nausea with vomiting, unspecified (principal); U07.1 COVID-19; D72.819 Decreased white blood cell count, unspecified; R74.01 Elevation of levels of liver transaminase levels; Z79.899 Other long term (current) drug therapy
CPT/HCPCS: 80048; 80076; 82150; 83605; 83690; 84702; 85025; 96361; 96374; 99283; J2405

== ENCOUNTER 2021-10-02 17:44 | Emergency (ER) | payer OTHER ==
[~2021-10-02] VITALS: Ht 162.6 cm; Wt 83.6 kg
[~2021-10-02 17:44] MED LIST changes: +ACET-897 PO; +DIVA250T7; +sertraline
[2021-10-02] MEDS ORDERED: ONDANSETRON 4MG/2ML VIAL IV ONE (19:20)
[2021-10-02] MEDS ORDERED: NS 1,000 ML IV ONE (19:20)
[2021-10-02] MEDS ORDERED: MORPHINE 2 MG/ML 1ML VIAL (J2270) IV ONE (19:20)
[2021-10-02 19:54] LABS: BASO % 0.2 % (0.0-1.0); EOS # 0.1 10^3/uL (0.0-0.5); EOS % 1.6 % (0.0-3.0); HEMATOCRIT 35.7 % (36.0-47.0); HEMOGLOBIN 12.1 g/dl (12.0-15.5); LYMPH # 1.4 10^3/uL (1.5-5.0); LYMPH % 32.4 % (24.0-44.0); MEAN CORPUSCULAR HEMOGLOBIN 32.4 pg (27.0-33.0); MEAN CORPUSCULAR HGB CONC 33.9 g/dl (32.0-36.5); MEAN CORPUSCULAR VOLUME 95.5 fl (80.0-96.0); MONO # 0.4 10^3/uL (0.0-0.8); MONO % 9.3 % (2.0-8.0); NEUTROPHILS # 2.4 10^3/uL (1.5-8.5); NEUTROPHILS % 56.5 % (36.0-66.0); PLATELET COUNT, AUTOMATED 194 10^3/uL (150-450); RED BLOOD COUNT 3.74 10^6/uL (4.00-5.40); WHITE BLOOD COUNT 4.3 10^3/uL (4.0-10.0)
[2021-10-02 20:20] LABS: ALBUMIN 3.3 GM/DL (3.2-5.2); ALT/SGPT 51 U/L (12-78); BILIRUBIN,TOTAL 0.3 MG/DL (0.2-1.0); BLOOD UREA NITROGEN 7 MG/DL (7-18); CALCIUM LEVEL 8.3 MG/DL (8.5-10.1); CARBON DIOXIDE LEVEL 28 MEQ/L (21-32); CHLORIDE LEVEL 106 MEQ/L (98-107); CREATININE FOR GFR 0.65 MG/DL (0.55-1.30); GLOMERULAR FILTRATION RATE > 60.0 (>60); GLUCOSE, FASTING 86 MG/DL (70-100); POTASSIUM SERUM 4.1 MEQ/L (3.5-5.1); SODIUM LEVEL 138 MEQ/L (136-145)
[2021-10-02 21:31] VITALS: BP 181/112
[2021-10-02] MEDS ORDERED: CIPROFLOXACIN 500MG TABLET PO ONE (21:35)
[2021-10-02] MEDS ORDERED: MIRA3350 PO (21:36)
[2021-10-02] MEDS ORDERED: CIPR-249 PO (21:36)
== END 2021-10-02 21:56 | disposition home or self-care (01) ==
LOC: M ED 17:44
DX: K59.00 Constipation, unspecified (principal); N12 Tubulo-interstitial nephritis, not specified as acute or chronic; G47.00 Insomnia, unspecified; F31.9 Bipolar disorder, unspecified; Z79.899 Other long term (current) drug therapy; Z88.5 Allergy status to narcotic agent; Z88.8 Allergy status to other drugs, medicaments and biological substances
CPT/HCPCS: 74176; 80053; 81001; 83605; 85025; 87040; 87086; 96361; 96374; 96375; 99284; J2270; J2405; U0003

== ENCOUNTER 2022-06-09 10:33 | Emergency (ER) | payer OTHER ==
[~2022-06-09] VITALS: Ht 162.6 cm; Wt 81.8 kg
[~2022-06-09 10:33] MED LIST changes: +CIPR-249 PO; +MIRA3350 PO
[2022-06-09] MEDS ORDERED: SERT50TA29 (10:41)
[2022-06-09 12:05] LABS: BASO % 0.4 % (0.0-1.0); EOS # 0.1 10^3/uL (0.0-0.5); EOS % 1.4 % (0.0-3.0); HEMOGLOBIN 12.3 g/dl (12.0-15.5); LYMPH # 1.3 10^3/uL (1.5-5.0); LYMPH % 25.3 % (24.0-44.0); MEAN CORPUSCULAR HEMOGLOBIN 33.6 pg (27.0-33.0); MEAN CORPUSCULAR HGB CONC 34.2 g/dl (32.0-36.5); MEAN CORPUSCULAR VOLUME 98.4 fl (80.0-96.0); MONO # 0.3 10^3/uL (0.0-0.8); MONO % 5.7 % (2.0-8.0); NEUTROPHILS # 3.4 10^3/uL (1.5-8.5); NEUTROPHILS % 66.8 % (36.0-66.0); PLATELET COUNT, AUTOMATED 168 10^3/uL (150-450); RED BLOOD COUNT 3.66 10^6/uL (4.00-5.40); WHITE BLOOD COUNT 5.1 10^3/uL (4.0-10.0)
[2022-06-09] MEDS ORDERED: ACETAMINOPHEN TAB 650MG DOSE (2X325MG) PO ONE (12:15)
[2022-06-09 12:38] LABS: URINE PREG TEST NEGATIVE (NEGATIVE)
[2022-06-09 12:46] LABS: BLOOD UREA NITROGEN 13 MG/DL (7-18); CALCIUM LEVEL 8.7 MG/DL (8.5-10.1); CARBON DIOXIDE LEVEL 26 MEQ/L (21-32); CHLORIDE LEVEL 105 MEQ/L (98-107); CREATININE FOR GFR 0.74 MG/DL (0.55-1.30); GLOMERULAR FILTRATION RATE > 60.0 (>60); GLUCOSE, FASTING 104 MG/DL (70-100); SODIUM LEVEL 135 MEQ/L (136-145)
[2022-06-09 12:47] LABS: ALBUMIN 3.1 GM/DL (3.2-5.2); ALT/SGPT 32 U/L (12-78); BILIRUBIN,DIRECT 0.1 MG/DL (0.0-0.2); BILIRUBIN,TOTAL 0.3 MG/DL (0.2-1.0); THYROXINE (T4) 13.4 UG/DL (4.5-12.0); TOTAL PROTEIN 7.1 GM/DL (6.4-8.2)
[2022-06-09 13:57] VITALS: BP 119/55
== END 2022-06-09 14:08 | disposition home or self-care (01) ==
LOC: M ED 10:33
DX: R51.9 Headache, unspecified (principal); M54.9 Dorsalgia, unspecified; Z88.6 Allergy status to analgesic agent; Z88.8 Allergy status to other drugs, medicaments and biological substances; Z91.041 Radiographic dye allergy status